=== PATIENT | female | born 1955 | race Caucasian/White ===

== ENCOUNTER 2019-12-06 20:12 | Emergency (ER) | payer MEDICARE ==
[~2019-12-06] VITALS: Ht 160 cm; Wt 76.2 kg
--- OUTSIDE RECORDS SUMMARY | 2019-12-06 20:16 | XMS REPORT | Clinical Summary ---
Author Author [facility] Address Unknown Phone Unavailable Care Team Providers Care City Engineer Name Role Phone Elvi Nagel MD PCP Allergies Comments Active Allergy Reactions Severity Noted Date Codeine Rash Low 11/03/2018 Sulfa (Sulfonamide Anaphylaxis High 11/03/2018 Antibiotics) Medications End Date Status Medication Sig Dispensed Refills Start Date Active lisinopril Take 10 mg by 0 (PRINIVIL,ZESTRIL) 10 mg mouth daily. tablet Active clonIDINE HCl (CATAPRES) Take 0.2 mg 0 0.2 MG tablet by mouth 2 (two) times a day. Active carisoprodol (SOMA) 350 TK 1 T PO TID 1 10/26/ 201 MG tablet 9 Active Problems Problem Noted Date Closed fracture of right wrist 12/19/2018 Encounters Care Team Description Date Type Specialty Tereso Solis MD Closed fracture of right wrist with rout ine healing, subsequent encounter (Primary Dx) 12/19/2018 [facility] Visit [facility] Clarence Shah MA Closed fracture of right wrist with rout ine healing, subsequent encounter (Primary Dx) 12/16/2018 Orders Only [facility] after 12/05/2018 Family History Medical History Relation Name Comments Cancer Father Hypertension Mother Relation Name Status Comments Father Mother Social History Date Tobacco Use Types Packs/Day Years Used Current Every Day Smoker Smokeless Tobacco: Never Used Drinks/Week oz/Week Comments Alcohol Use No Alcohol Habits Answer Date Recorded How often do you have a drink containing alcohol? Never 11/03/2018 How many drinks containing alcohol do you have on No t asked a typical day when you are drinking? How often do you have six or more drinks on one Not asked occasion? Sex Assigned at Date Recorded Not on file Industry Job Start Date Occupation Not on file Not on file Not on file Travel End Travel History Travel Start No recent travel history available. Last Filed Vital Signs Not on file Plan of Treatment Health Maintenance Due Date Last Done Comments CERVICAL CANCER SCREENING 1977 BREAST CANCER SCREENING 2006 COLONOSCOPY SCREENING 2006 SHINGLES VACCINES (#1) 2006 INFLUENZA VACCINE 03/02/2020 Procedures Comments Procedure Name Priority Date/Time Associated Diag nosis XR WRIST 3+ VW RIGHT Routine 12/19/2018 Closed fr acture of right 9:58 AM CDT wrist with routine healing, subsequent encounter after 12/05/2018 Results * XR Wrist 3+ Vw Right (12/19/2018 9:58 AM CDT) Specimen Narrative Performed At [facility] Xrays: The x-rays were ordered and pers onally reviewed by me. 3 views of the right wrist Reason for exam: Right wrist fracture Impression: Right distal radius fractur e healed ulnar styloid fracture Performing Organization Address City/State/Zipcomi Ph one Number [facility] [address] [place] [address] after 12/05/2018 Insurance Type Payer Benefit Subscriber ID Effective Phone Address Plan / Dates Group HMO HUMANA MEDICARE HUMANA HMO xxxxxxxxx [id number] GOLD PLUS resent MEDICARE [id number] Advance Directives For more information, please contact: [phone] Patient Crewman Main Battle Tank Explanation Type Date Recorded Advance Directives, Living Will and Medical Power of Pool Player
--- OUTSIDE RECORDS SUMMARY | 2019-12-06 20:17 | XMS REPORT ---
Author Author NELY Nagel Organization [employer] Address Unknown Phone Unavailable Care Team Providers Care Press Operator Assistant Name Role Phone Elvi Nagel CP Unavailable Allergies No Known Allergies Problems Problem Type Condition Code Onset Dates Condition Statu s Problem Crohn disease K50.90 Active Problem Insomnia G47.00 Active Problem Cervical disc disease with myelopathy M50.00 Active Problem Vertigo R42 Active Problem HTN (hypertension), benign I10 A ctive Problem Cervicalgia M54.2 Active Problem GERD without esophagitis K21.9 Act maya Problem Thyroid nodule E04.1 Active Problem Ataxia R27.0 Active Problem Other chronic pain G89.29 Active Assessment Ataxia R27.0 Active Problem Anxiety F41.9 Active Problem IBS (irritable bowel syndrome) K58.9 Active Medications Medication Code System Code Instructions Start Date End Date Status Dosage Soma [facility] 86770160059 350 Active TAKE ONE TAB LET BY MOUTH THREE TIMES A DAY Meclizine HCl [facility] 48118190293 25 MG Orally twice a day (bid) Jan Active 1 tablet as needed Results No Known Results Summary Purpose eClinicalWorks Submission
--- OUTSIDE RECORDS SUMMARY | 2019-12-06 20:17 | XMS REPORT ---
Author Author NELY Nagel Organization [employer] Address Unknown Phone Unavailable Care Team Providers Care Oncology Social Work Name Role Phone Elvi Nagel CP Unavailable Allergies No Known Allergies Problems Problem Type Condition Code Onset Dates Condition Statu s Problem Crohn disease K50.90 Active Problem Cervical disc disease with myelopathy M50.00 Active Problem Insomnia G47.00 Active Problem HTN (hypertension), benign I10 A ctive Problem Vertigo R42 Active Problem Ataxia R27.0 Active Problem GERD without esophagitis K21.9 Act maya Problem Thyroid nodule E04.1 Active Problem Other chronic pain G89.29 Active Problem Cervicalgia M54.2 Active Assessment Vertigo R42 Active Assessment Anxiety F41.9 Active Problem Anxiety F41.9 Active Problem IBS (irritable bowel syndrome) K58.9 Active Medications Medication Code System Code Instructions Start Date End Date Status Dosage Klonopin [facility] [address]-24 2 MG Orally Twice a day November 10, 2016 Active 1 tablet Meclizine HCl [facility] [address]-89 25 MG Orally twice a day (bid) J 2016 Active 1 tablet as needed Results No Known Results Summary Purpose [employer]ClinicalWorks Submission
--- OUTSIDE RECORDS SUMMARY | 2019-12-06 20:17 | XMS REPORT ---
Author Author NELY Waller Organization [employer] Address Unknown Phone Unavailable Care Team Providers Care Afterschool Name Role Phone Eamon Waller CP Unavailable Allergies, Adverse Reactions, Alerts Substance Reaction Event Type penicillin Info Not Available Drug Allergy sulfa Info Not Available Drug Allergy Codeine Phosphate Info Not Available Drug Allergy Cipro Info Not Available Drug Allergy eggs Info Not Available Non Drug Allergy Problems Problem Type Condition Code Onset Dates [...] Problem Other chronic pain G89.29 Active Assessment IBS (irritable bowel syndrome) K58.9 Active Assessment Current moderate episode of major depressive disorder without prior episode F32.1 Active Assessment HTN (hypertension), benign I10 A ctive Assessment Ataxia R27.0 Active Problem Anxiety F41.9 Active Assessment Anxiety F41.9 Active Problem IBS (irritable bowel syndrome) K58.9 Active Medications Medication Code System Code Instructions Start Date End Date Status Dosage Soma [facility] 14952489391 350 Active TAKE ONE TAB LET BY MOUTH THREE TIMES A DAY Clonidine HCl [facility] 56756542082 0.3 MG Orally th ree times a day (tid) as needed (prn) Active 1 tablet Meclizine HCl [facility] 73007851048 25 MG Orally twice a day (bid) Jan Active 1 tablet as needed Dicyclomine HCl [facility] 87133128395 20 mg Orally Four times a day Active 1 tablet Soma [place] 25199108626 350 MG Orally Four times a day Apr 01, 2017 December 16, 2017 Active 1 tablet Zoloft ND 21645591119 50 mg Orally Once a day November 16, 2017 Active 1 tablet Lisinopril [facility] 71572365403 40 mg Orally twice a day (bid) Active 1 tablet [place]unkie [facility] 95459562202 10-325 MG Orally four times a day (qid ) Jul 15, 2016 Active 1 tablet as needed Klonopin [facility] 18171265686 2 MG Orally Twice a day November 10, 2016 Active 1 tablet Vital Signs Date/Time: November 16, 2017 BMI 28.95 Index Weight 165 lbs Height 63.3 in Temperature 98.1 F Cardiac Monitoring Heart Rate 81 /min Blood Pressure Diastolic 91 mm Hg Blood Pressure Systolic 178 mm Hg Results No Known Results Summary Purpose eClinicalWorks Submission
--- OUTSIDE RECORDS SUMMARY | 2019-12-06 20:17 | XMS REPORT ---
Author Author NELY Nagel Organization [employer] Address Unknown Phone Unavailable Care Team Providers Care Reinforcing Steel Erector Name Role Phone Elvi Nagel CP Unavailable Allergies No Known Allergies Problems Problem Type Condition Code Onset Dates Condition Statu s Problem Crohn disease K50.90 Active Problem Insomnia G47.00 Active Problem Cervical disc disease with myelopathy M50.00 Active Problem Ataxia R27.0 Active Problem Cervicalgia M54.2 Active Problem HTN (hypertension), benign I10 A ctive Problem GERD without esophagitis K21.9 Act maya Problem Thyroid nodule E04.1 Active Problem Other chronic pain G89.29 Active Problem Vertigo R42 Active Assessment HTN (hypertension), benign I10 A ctive Problem Anxiety F41.9 Active Problem IBS (irritable bowel syndrome) K58.9 Active Medications Medication Code System Code Instructions Start Date End Date Status Dosage Lisinopril [facility] 91179636690 40 mg Orally twice a day (bid) Active 1 tablet Results No Known Results Summary Purpose [employer]ClinicalWorks Submission
--- OUTSIDE RECORDS SUMMARY | 2019-12-06 20:17 | XMS REPORT ---
Author Author NELY Nagel Organization [employer] Address Unknown Phone Unavailable Care Team Providers Care Field Scout Name Role Phone Elvi Nagel CP Unavailable Allergies No Known Allergies Problems Problem Type Condition Code Onset Dates Condition Statu s Problem Crohn disease K50.90 Active Problem Insomnia G47.00 Active Problem Cervical disc disease with myelopathy M50.00 Active Problem Anxiety F41.9 Active Problem IBS (irritable bowel syndrome) K58.9 Active Problem Vertigo R42 Active Problem HTN (hypertension), benign I10 A ctive Problem Cervicalgia M54.2 Active Problem GERD without esophagitis K21.9 Act maya Problem Thyroid nodule E04.1 Active Problem Ataxia R27.0 Active Problem Other chronic pain G89.29 Active Medications Medication Code System Code Instructions Start Date End Date Status Dosage Zithromax Z-Temo [facility] 39265042559 250 MG Orally Once a day Jul 032016Aug 03, 2017 Active 2 tablets on the first day, then 1 tablet daily for 4 days Results No Known Results Summary Purpose eClinicalWorks Submission
--- OUTSIDE RECORDS SUMMARY | 2019-12-06 20:17 | XMS REPORT ---
Author Author NELY Nagel Organization [employer] Address Unknown Phone Unavailable Care Team Providers Care Typewriter Aligner Name Role Phone Elvi Nagel CP Unavailable [...] Instructions Start Date End Date Status Dosage Promethazine-DM [facility] [address]-01 15-6.25 MG/5ML Orally ev roque 6 hrs Jun 16, 2017 Jun 30, 2017 Active 5 ml as needed Keflex [facility] 54770683558 500 mg Orally twice a day (bid) Jun 16, 2017 Jun 23, 2017 Active 1 capsule Results No Known Results Summary Purpose [employer]Works Submission
--- OUTSIDE RECORDS SUMMARY | 2019-12-06 20:17 | XMS REPORT ---
Author Author NELY Nagel Organization [employer] Address Unknown Phone Unavailable Care Team Providers Care Adjunct Faculty Instructor Name Role Phone Elvi Nagel CP Unavailable [...] Instructions Start Date End Date Status Dosage Levaquin [facility] 02320027899 500 MG Orally Once a day Jun 11, 2017 Jun 18, 2017 Active 1 tablet Results No Known Results Summary Purpose [employer]ClinicalWorks Submission
--- OUTSIDE RECORDS SUMMARY | 2019-12-06 20:17 | XMS REPORT ---
Author Author NELY Nagel Organization [employer] Address Unknown Phone Unavailable Care Team Providers Care Interior Design Assistant Name Role Phone Elvi Nagel CP Unavailable Allergies No Known Allergies Problems Problem Type Condition Code Onset Dates Condition Statu s Problem Crohn disease K50.90 Active Problem Insomnia G47.00 Active Problem Cervical disc disease with myelopathy M50.00 Active Problem Anxiety F41.9 Active Problem IBS (irritable bowel syndrome) K58.9 Active Problem Ataxia R27.0 Active Problem Cervicalgia M54.2 Active Problem HTN (hypertension), benign I10 A ctive Problem GERD without esophagitis K21.9 Act maya Problem Thyroid nodule E04.1 Active Problem Other chronic pain G89.29 Active Problem Vertigo R42 Active Medications No Known Medications Results No Known Results Summary Purpose [employer]ClinicalWorks Submission
--- OUTSIDE RECORDS SUMMARY | 2019-12-06 20:17 | XMS REPORT ---
Author Author NELY Nagel Organization [employer] Address Unknown Phone Unavailable Care Team Providers Care Perinatal Director Name Role Phone Elvi Nagel CP Unavailable [...] Problem Other chronic pain G89.29 Active Medications No Known Medications Results No Known Results Summary Purpose [employer]ClinicalWorks Submission
--- OUTSIDE RECORDS SUMMARY | 2019-12-06 20:17 | XMS REPORT ---
Author Author NELY Nagel Organization [employer] Address Unknown Phone Unavailable Care Team Providers Care Joiner Apprentice Name Role Phone Elvi Nagel CP Unavailable [...]
--- OUTSIDE RECORDS SUMMARY | 2019-12-06 20:17 | XMS REPORT ---
Author Author NELY Nagel Organization [employer] Address Unknown Phone Unavailable Care Team Providers Care Aquarium Tank Attendant Name Role Phone Elvi Nagel CP Unavailable [...]
--- OUTSIDE RECORDS SUMMARY | 2019-12-06 20:17 | XMS REPORT ---
Author Author NELY Nagel Organization [employer] Address Unknown Phone Unavailable Care Team Providers Care Mortuary Beautician Name Role Phone Elvi Nagel CP Unavailable [...] G89.29 Active Problem Cervicalgia M54.2 Active Assessment Cervicalgia M54.2 Active Problem Anxiety F41.9 Active Problem IBS (irritable bowel syndrome) K58.9 Active Medications Medication Code System Code Instructions Start Date End Date Status Dosage Soma [facility] 81658039721 350 Orally Four times a day Active 1 tablet Klonopin [facility] [address]-86 2 MG Orally Twice a day November 10, 2016 Active 1 tablet Results No Known Results Summary Purpose [employer]ClinicalWorks Submission
--- OUTSIDE RECORDS SUMMARY | 2019-12-06 20:17 | XMS REPORT ---
Author Author NELY Waller Organization [employer] Address Unknown Phone Unavailable Care Team Providers Care Gas Reverser Name Role Phone Eamon Waller CP Unavailable [...] Problem Other chronic pain G89.29 Active Assessment Vertigo R42 Active Assessment Cervical disc disease with myelopathy M50.00 Active Assessment HTN (hypertension), benign I10 A ctive Assessment IBS (irritable bowel syndrome) K58.9 Active Problem Anxiety F41.9 Active Assessment Anxiety F41.9 Active Problem IBS (irritable bowel syndrome) K58.9 Active Medications Medication Code System Code Instructions Start Date End Date Status Dosage Soma [facility] 29621016250 350 MG Orally Four times a day Apr 01, 2017 Aug 30, 2017 Active 1 tablet Dicyclomine HCl [facility] 32942928594 20 Active TAKE ONE TABLET BY MOUTH FOUR TIMES A DAY Lisinopril [facility] 06629324194 40 mg Orally twice a day (bid) Active 1 tablet Clonidine HCl [facility] 05586823979 0.3 MG Orally Twice a day Active 1 tablet Clonidine HCl [facility] 38073230118 0.3 Active TAKE O NE TABLET BY MOUTH TWICE A DAY Klonopin [facility] 13524964979 2 MG Orally Twice a day November 10, 2016 Active 1 tablet Dicyclomine HCl [facility] 56076798646 20 Active TAKE ONE TABLET BY MOUTH FOUR TIMES A DAY Meclizine HCl [facility] 76726843777 25 MG Orally twice a day (bid) Jan Active 1 tablet as needed [place] [facility] 55271027286 10-325 MG Orally four times a day (qid ) Jul 15, 2016 Active 1 tablet as needed Dicyclomine HCl [facility] 95297591529 20 mg Orally Four times a day Active 1 tablet Clonidine HCl [facility] 85553449779 0.3 Active TAKE O NE TABLET BY MOUTH TWICE A DAY Dicyclomine HCl [facility] 12208471493 20 Active TAKE ONE TABLET BY MOUTH FOUR TIMES A DAY Vital Signs Date/Time: Jul 01, 2017 BMI 28.30 Index Weight 161.3 lbs Height 63.3 in Temperature 98.2 F Cardiac Monitoring Heart Rate 92 /min Blood Pressure Diastolic 85 mm Hg Blood Pressure Systolic 128 mm Hg Results No Known Results Summary Purpose eClinicalWorks Submission
--- OUTSIDE RECORDS SUMMARY | 2019-12-06 20:17 | XMS REPORT ---
Author Author NELY Nagel Organization [employer] Address Unknown Phone Unavailable Care Team Providers Care Plaster Die Maker Name Role Phone Elvi Nagel Unavailable Allergies, Adverse Reactions, Alerts Substance Reaction Event Type Influenza Vac Typ A&B Surf Ant Info Not Available Drug Marshall rgy Codeine Phosphate Info Not Available Drug Allergy [...] G89.29 Active Problem Vertigo R42 Active Assessment Anxiety F41.9 Active Assessment IBS (irritable bowel syndrome) K58.9 Active Assessment Cervical disc disease with myelopathy M50.00 Active Assessment Cervicalgia M54.2 Active Assessment HTN (hypertension), benign I10 A ctive Problem Anxiety F41.9 Active Assessment Other chronic pain G89.29 Active Problem IBS (irritable bowel syndrome) K58.9 Active Medications Medication Code System Code Instructions Start Date End Date Status Dosage Clonidine HCl [facility] 21451961129 0.3 MG Orally Twice a day as needed Active 1 tablet [place] [facility] 25172747779 10-325 MG Orally four times a day (qid ) Jul 15, 2016 Active 1 tablet as needed Meclizine HCl [facility] 15672314802 25 MG Orally twice a day (bid) Jan Active 1 tablet Dicyclomine HCl [facility] 02628293978 20 mg Orally Four times a day May 28, 2019 Active 1 tablet Soma [facility] 94302435662 350 Orally three times a day (tid) Active 1 tablet Lisinopril [facility] 42961886026 40 mg Orally twice a day (bid) Active 1 tablet Klonopin ND 64553208240 2 MG Orally Twice a day November 10, 2016 Active 1 tablet Vital Signs Date/Time: Aug 31, 2018 BMI 31.23 Index Weight 178.0 lbs Height 63.3 in Temperature 97.1 F Cardiac Monitoring Heart Rate 68 /min Blood Pressure Diastolic 91 mm Hg Blood Pressure Systolic 147 mm Hg Results No Known Results Summary Purpose eClinicalWorks Submission
--- OUTSIDE RECORDS SUMMARY | 2019-12-06 20:17 | XMS REPORT ---
Author Author NELY Nagel Organization [employer] Address Unknown Phone Unavailable Care Team Providers Care Parts Counterperson Name Role Phone Elvi Nagel CP Unavailable [...] G89.29 Active Problem Cervicalgia M54.2 Active Assessment IBS (irritable bowel syndrome) K58.9 Active Problem Anxiety F41.9 Active Problem IBS (irritable bowel syndrome) K58.9 Active Medications Medication Code System Code Instructions Start Date End Date Status Dosage Dicyclomine HCl [facility] [address]-25 20 mg Orally Four times a day January 08, 2018 Active 1 tablet Soma [facility] [address]-63 350 MG Orally THREE TIMES A DAY A ug 2016May 13, 2017 Active 1 tablet Meclizine HCl [facility] [address]-93 25 MG Orally twice a day (bid) J darshan 2016 Active 1 tablet as needed Results No Known Results Summary Purpose eClinicalWorks Submission
--- OUTSIDE RECORDS SUMMARY | 2019-12-06 20:17 | XMS REPORT ---
Author Author NELY Nagel Organization [employer] Address Unknown Phone Unavailable Care Team Providers Care Laborer Rags Name Role Phone Elvi Nagel CP Unavailable [...] Problem Other chronic pain G89.29 Active Assessment HTN (hypertension), benign I10 A ctive Problem Anxiety F41.9 Active Problem IBS (irritable bowel syndrome) K58.9 Active Medications Medication Code System Code Instructions Start Date End Date Status Dosage Clonidine HCl [facility] 18998486500 0.3 MG Orally th ree times a day (tid) as needed (prn) Active 1 tablet Results No Known Results Summary Purpose eClinicalWorks Submission
--- OUTSIDE RECORDS SUMMARY | 2019-12-06 20:17 | XMS REPORT ---
Author Author NELY Nagel Organization [employer] Address Unknown Phone Unavailable Care Team Providers Care Rn Resource Nurse Name Role Phone Elvi Nagel Unavailable Allergies No Known Allergies Problems Problem [...] G89.29 Active Problem Vertigo R42 Active Assessment Cervical disc disease with myelopathy M50.00 Active Problem Anxiety F41.9 Active Problem IBS (irritable bowel syndrome) K58.9 Active Medications Medication Code System Code Instructions Start Date End Date Status Dosage Soma [facility] 41422081235 350 Orally three times a day (tid) A pril 2018 Active 1 tablet Results No Known Results Summary Purpose eClinicalWorks Submission
--- OUTSIDE RECORDS SUMMARY | 2019-12-06 20:17 | XMS REPORT ---
Author Author NELY Nagel Organization [employer] Address Unknown Phone Unavailable Care Team Providers Care Rod Pointer Name Role Phone Elvi Nagel CP Unavailable Allergies No Known Allergies Problems Problem Type Condition Code Onset Dates Condition Statu s Problem Anxiety F41.9 Active Problem Thyroid nodule E04.1 Active Problem Cervical disc disease with myelopathy M50.00 Active Problem GERD without esophagitis K21.9 Act maya Problem IBS (irritable bowel syndrome) K58.9 Active Problem HTN (hypertension) I10 Active Problem Insomnia G47.00 Active Problem Crohn disease K50.90 Active Medications Medication Code System Code Instructions Start Date End Date Status Dosage Carisoprodol [facility] [address]-90 350 MG Orally Four times a day November 10, 2016 December 10, 2016 Active 1 tablet as needed Klonopin [facility] [address]-54 2 MG Orally Twice a day November 10, 2016 Active 1 tablet Results No Known Results Summary Purpose eClinicalWorks Submission
--- OUTSIDE RECORDS SUMMARY | 2019-12-06 20:17 | XMS REPORT ---
Author Author NELY Nagel Organization [employer] Address Unknown Phone Unavailable Care Team Providers Care Financial Services Counselor Name Role Phone Elvi Nagel CP Unavailable [...] G89.29 Active Problem Cervicalgia M54.2 Active Assessment HTN (hypertension), benign I10 A ctive Problem Anxiety F41.9 Active Problem IBS (irritable bowel syndrome) K58.9 Active Medications Medication Code System Code Instructions Start Date End Date Status Dosage Clonidine HCl [facility] [address]-83 0.3 MG Orally Twice a day Active 1 tablet Lisinopril [facility] [address]-79 40 MG Orally twice a day (bid) Active 1 tablet Results No Known Results Summary Purpose eClinicalWorks Submission
--- OUTSIDE RECORDS SUMMARY | 2019-12-06 20:17 | XMS REPORT ---
Author Author NELY Nagel Organization [employer] Address Unknown Phone Unavailable Care Team Providers Care Reconditioner Name Role Phone Elvi Nagel CP Unavailable [...] G89.29 Active Problem Vertigo R42 Active Medications Medication Code System Code Instructions Start Date End Date Status Dosage Promethazine-DM [facility] 64130007195 6.25-15 MG/5ML Orally every 6 hrs Jul 04, 2018 Jul 14, 2018 Active 5 ml as needed Results No Known Results Summary Purpose eClinicalWorks Submission
--- OUTSIDE RECORDS SUMMARY | 2019-12-06 20:17 | XMS REPORT ---
Author Author NELY Nagel Organization [employer] Address Unknown Phone Unavailable Care Team Providers Care Bakery Technician Name Role Phone Elvi Nagel CP Unavailable [...] Start Date End Date Status Dosage Klonopin [facility] [address]-32 2 MG Orally Twice a day November 10, 2016 Active 1 tablet Soma [facility] 29604057940 350 Orally Four times a day Active 1 tablet as needed Results No Known Results Summary Purpose eClinicalWorks Submission
--- OUTSIDE RECORDS SUMMARY | 2019-12-06 20:17 | XMS REPORT ---
Author Author NELY Nagel Organization [employer] Address Unknown Phone Unavailable Care Team Providers Care Rooter Operator Name Role Phone Elvi Nagel CP Unavailable [...] Start Date End Date Status Dosage Soma [facility] [id number] Orally Four times a day Apr 01, 2017 Inactive 1 tablet Soma [facility] [address]-64 350 MG Orally THREE TIMES A DAY A 2016May 01, 2017 Active 1 tablet Results No Known Results Summary Purpose [employer] Submission
--- OUTSIDE RECORDS SUMMARY | 2019-12-06 20:17 | XMS REPORT ---
Author Author NELY Nagel Organization [employer] Address Unknown Phone Unavailable Care Team Providers Care Furnishings Conservator Name Role Phone Elvi Nagel CP Unavailable [...]
--- OUTSIDE RECORDS SUMMARY | 2019-12-06 20:17 | XMS REPORT | Continuity of Care Document ---
Author Author Marily Prince [employer] [facility] [employer] Address Unknown Phone Unavailable Care Team Providers Care Statistical Technician Name Role Phone [employer] Unavailable Un available Problems Problem Status Onset Date Classification Date Reported Comments Source Anxiety Active Diagnosis 12/24/2018 2.16.840.1.975408.4.391.11.01470 Thyroid nodule Active Problem 12/24/2018 2.16.840.1.116668.4.391.11.2 2568 Cervical disc disease with myelopathy Active Problem 2.16.840.1.537178.4.391.11.2 2568 GERD without esophagitis Active Problem 12/24/2018 2.16.840.1.327505.4.391.11.2 2568 IBS (irritable bowel syndrome) Active Problem 2.16.840.1.357311.4.391.11.2 2568 HTN (hypertension) Active Problem 02/04/2017 2.16.840.1.037375.4.391.11.2 2568 Insomnia Active Problem 12/24/2018 2.16.840.1.205333.4.391.11.73693 Crohn disease Active Problem 12/24/2018 2.16.840.1.789686.4.391.11.24488 Vertigo Active Problem 12/24/2018 2.16.840.1.190446.4.391.11.47415 HTN (hypertension), benign Act maya Problem 2.16.840.1.113471.4.391.11.2 2568 Cervicalgia Active Problem 12/24/2018 2.16.840.1.257814.4.391.11.37797 Ataxia Active Problem 12/24/2018 2.16.840.1.713781.4.391.11.19312 Other chronic pain Active Problem 12/24/2018 2.16.840.1.305739.4.391.11.2 2568 Current moderate episode of major depres sive disorder without prior episode Active Diagnosis 12/03/2017 2.16.840.1.590042.4.391.11.30665 Colitis Active Diagnosis 04/09/2018 2.16.840.1.433039.4.391.11.26660 Irritable bowel syndrome Active Diagnosis 04/01/2016 2.16.840.1.342355.4.391.11.2 2568 HTN (hypertension) Active Problem 01/11/2016 2.16.840.1.195264.4.391.11.2 2568 Closed fracture of right wrist, initial encounter Active Diagnosis 11/19/2018 2.16.840.1.294050.4.391.11.33779 Diplopia Active Diagnosis 01/06/2016 2.16.840.1.785409.4.391.11.42134 Osteoarthritis of right knee A ctive Diagnosis 0 01/06/2016 2.16.840.1.099490.4.391.11.2 2568 Dental caries, unspecified Act maya Diagnosis 0 01/06/2016 2.16.840.1.095692.4.391.11.2 2568 Bronchitis Active Diagnosis 10/01/2016 2.16.840.1.479754.4.391.11.30122 Medications Medication Details Route Status Patient Instructions Ordering Provider Order Date Source Dicyclomine HCl 1 tablet Orally Active 20 mg Orally Four times a day Robe 05/28/2019 2.16.840.1.173596.4.391.11.45067 Soma 1 tablet Orally Active 350 Orally three times a day (tid) Robe 11/26/2018 2.16.840.1.242516.4.391.11.50972 Soma 1 tablet as needed Orally Active 350 MG Orally three kadi es a day (tid) Robe 09/27/2018 2.16.840.1.523622.4.391.11.45500 Augmentin 1 tablet Orally Active 875-125 MG Orally every 12 hrs Robe 07/08/2018 2.16.840.1.397358.4.391.11.15182 Promethazine-DM 5 ml as needed Orally Active 6.25-15 MG/5ML Orally every 6 hrs Robe 07/04/2018 2.16.840.1.307341.4.391.11.81071 Dicyclomine HCl 1 tablet Orally Active 20 mg Orally Four times a day Sridhar 01/08/2018 2.16.840.1.932234.4.391.11.98924 Dicyclomine HCl 1 tablet Orally Active 20 mg Orally Four times a day Robe 11/20/2017 2.16.840.1.930696.4.391.11.40193 Zoloft 1 tablet Orally Active 50 mg Orally Once a day Sridhar 11/16/2017 2.16.840.1.561483.4.391.11.51564 Zithromax Z-Temo 2 tablets on the first day, then 1 tablet daily for 4 days Orally Active 250 MG Orally Once a day Robe 07/29/2017 2.16.840.1.447880.4.391.11.68434 Promethazine-DM 5 ml as needed Orally Active 15-6.25 MG/5ML Orally every 6 hrs Robe 06/16/2017 2.16.840.1.087177.4.391.11.39557 Keflex 1 capsule Orally Active 500 mg Orally twice a d ay (bid) Robe 06/16/2017 2.16.840.1.940610.4.391.11.75280 Levaquin 1 tablet Orally Active 500 MG Orally Once a da y Robe 06/11/2017 2.16.840.1.692772.4.391.11.42988 Dicyclomine HCl 1 tablet Orally Active 20 mg Orally Four times a day Robe 04/05/2017 2.16.840.1.535119.4.391.11.42176 Soma 1 tablet Orally Active 350 MG Orally Four time s a day Sridhar 04/01/2017 2.16.840.1.285921.4.391.11.87550 Soma 1 tablet Orally Active 350 MG Orally Four time s a day Sridhar 04/01/2017 2.16.840.1.387483.4.391.11.72498 Meclizine HCl 1 tablet as need ed Orally Active 25 MG Orally twice a day (bid) Sridhar 02/23/2017 2.16.840.1.977755.4.391.11.66476 Meclizine HCl 1 tablet Orally Active 25 MG Orally twice a da y (bid) Robe 02/23/2017 2.16.840.1.189234.4.391.11.12668 Klonopin 1 tablet Orally Active 2 MG Orally Twice a day Sridhar 11/10/2016 2.16.840.1.268702.4.391.11.12969 Carisoprodol 1 tablet as needed Orally Active 350 MG Orally Four times a day Robe 11/10/2016 2.16.840.1.635878.4.391.11.24428 Klonopin 1 tablet Orally Active 2 MG Orally Twice a day Robe 11/10/2016 2.16.840.1.469774.4.391.11.67630 Promethazine-DM 5 ml as needed Orally Active 6.25-15 MG/5ML Orally every 4- 6 hrs Robe 09/21/2016 2.16.840.1.938306.4.391.11.49002 Protonix 1 tablet Orally Active 40 MG Orally Once a day Sridhar 09/15/2016 2.16.840.1.871496.4.391.11.25530 Ceftin 1 tablet Orally Active 500 MG Orally Twice a d ay Robe 09/15/2016 2.16.840.1.827202.4.391.11.33543 [place] 1 tablet as needed Orally Active 10-325 MG Orally four times a day (qid) Sridhar 07/15/2016 2.16.840.1.090965.4.391.11.10998 [place] 1 tablet as needed Orally Active 10-325 MG Orally four times a day (qid) Robe 07/15/2016 2.16.840.1.886708.4.391.11.60486 Dicyclomine HCl 1 tablet Orally Active 20 mg Orally Four times a day Robe 06/29/2016 2.16.840.1.847793.4.391.11.75622 Dicyclomine HCl 1 tablet Orally Active 20 mg Orally Four times a day Robe 06/29/2016 2.16.840.1.802673.4.391.11.56195 BusPIRone HCl 1 tablet Orally Active 7.5 MG Orally Twice a d ay Robe 06/15/2016 2.16.840.1.975669.4.391.11.05134 Keflex 1 capsule Orally Active 500 MG Orally Twice a d ay Robe 03/03/2016 2.16.840.1.807686.4.391.11.13710 Dicyclomine HCl 1 tablet Orally Active 20 mg Orally Four times a day Robe 02/10/2016 2.16.840.1.572079.4.391.11.38417 Carisoprodol 1 tablet as needed Orally Active 350 MG Orally Four times a day Robe 12/08/2015 2.16.840.1.971087.4.391.11.83011 Keflex 1 capsule Orally Active 500 MG Orally Twice a d ay Robe 10/21/2015 2.16.840.1.142827.4.391.11.48971 Carisoprodol 1 tablet as needed Orally Active 350 MG Orally Four times a day Robe 08/18/2015 2.16.840.1.449394.4.391.11.51373 Clonidine HCl 1 tablet Orally Active 0.3 MG Orally Twice a d ay Sridhar .16840.1.554653.4.391..22821 Lisinopril 1 tablet Orally Active 40 MG Orally twice a da y (bid) Sridhar .16840.1.857907.4.391.11.92962 Soma 1 tablet Orally Active 350 Orally three times a day (tid) Robe .16840.1.554454.4.391.68 Clonidine HCl TAKE ONE TABLET BY MOUTH TWICE A DAY NA Active 0. 3 Sridhar .16840.1.406483.4.391..33067 Clonidine HCl 1 tablet Orally Active 0.3 MG Orally Twice a d ay as needed Robe 2.840.1.436101.4.391..54934 Lisinopril 1 tablet Orally Active 40 mg Orally twice a da y (bid) Robe 2.16840.1.284998.4.391..89856 Soma 1 tablet as needed Orally Active 350 MG Orally Four time s a day Robe 2.840.1.591432.4.391. Dicyclomine HCl 1 tablet Orally Active 20 mg Orally Four times a day Robe 2.840.1.627261.4.391. Klonopin 1 tablet Orally Active 2 MG Orally Twice a day Robe 2.840.1.024623.4.391. Dicyclomine HCl 1 tablet Orally Active 20 MG Orally Four times a day Rboe 2.840.1.355226.4.391. Allergies, Adverse Reactions, Alerts Substance Category Reaction Severity Reaction type Status Date Reported Comments Source penicillin Adverse Reaction Info Not Available Adverse Reaction Active 01/07/2018 2.16840.1.024082.4.391.11.2 2568 sulfa Adverse Reaction Info Not Available Adverse Reaction Active 01/07/2018 2.16840.1.393569.4.391.11.2 2568 Codeine Phosphate Adverse Reac tion Info Not Available Adverse Reaction Active 11/02/2018 2.16840.1.938425.4.391.11.2 2568 Cipro Adverse Reaction Info Not Available Adverse Reaction Active 11/02/2018 2.16.840.1.570493.4.391.11.2 2568 Influenza Vac Typ A&B Surf Ant Adverse Reaction Info Not Available Adverse Reaction Active 11/02/2018 2.16840.1.231012.4.391.11.37202 eggs Adverse Reaction Info Not Available Adverse Reaction Active 11/02/2018 2.16.840.1.456031.4.391.11.2 2568 Immunizations No Data Provided for This Section Results No Data Provided for This Section Pathology Reports No Data Provided for This Section Diagnostic Reports No Data Provided for This Section Consultation Notes No Data Provided for This Section Discharge Summaries No Data Provided for This Section History and Physicals No Data Provided for This Section Vital Signs Vital Sign Value Date Comments Source Weight 178.0 11/02/2018 2.16.840.1.918757.4.391.11.2 2568 Height 63.3 11/02/2018 2.16.840.1.308309.4.391.11.2 2568 Temperature Oral (F) 97.1 F 11/02/2018 2.16.840.1.064236.4.391.11.91082 Heart Rate 69 11/02/2018 2.16.840.1.297549.4.391.11.2 2568 Diastolic (mm Hg) 78 11/02/2018 2.16.840.1.842224.4.391.11.42786 Systolic (mm Hg) 132 11/02/2018 2.16.840.1.300414.4.391.11.23737 Weight 177.0 10/26/2018 2.16.840.1.543712.4.391.11.2 2568 Height 63.3 10/26/2018 2.16.840.1.187419.4.391.11.2 2568 Temperature Oral (F) 96.6 F 10/26/2018 2.16.840.1.875526.4.391.11.63727 Heart Rate 80 10/26/2018 2.16.840.1.771983.4.391.11.2 2568 Diastolic (mm Hg) 105 10/26/2018 2.16.840.1.147270.4.391.11.50357 Systolic (mm Hg) 162 10/26/2018 2.16.840.1.852766.4.391.11.32388 Weight 178.0 08/31/2018 2.16.840.1.600682.4.391.11.2 2568 Height 63.3 08/31/2018 2.16.840.1.954299.4.391.11.2 2568 Temperature Oral (F) 97.1 F 08/31/2018 2.16.840.1.618474.4.391.11.77650 Heart Rate 68 08/31/2018 2.16.840.1.955840.4.391.11.2 2568 Diastolic (mm Hg) 91 08/31/2018 2.16.840.1.035967.4.391.11.56297 Systolic (mm Hg) 147 08/31/2018 2.16.840.1.537354.4.391.11.53664 Weight 168.6 04/08/2018 2.16.840.1.934351.4.391.11.2 2568 Height 63.3 04/08/2018 2.16.840.1.048489.4.391.11.2 2568 Temperature Oral (F) 97.7 F 04/08/2018 2.16.840.1.475903.4.391.11.42126 Heart Rate 95 04/08/2018 2.16.840.1.825740.4.391.11.2 2568 Diastolic (mm Hg) 109 04/08/2018 2.16.840.1.875685.4.391.11.04644 Systolic (mm Hg) 192 04/08/2018 2.16.840.1.341989.4.391.11.78169 Weight 163.0 01/07/2018 2.16.840.1.085351.4.391.11.2 2568 Height 63.3 01/07/2018 2.16.840.1.661020.4.391.11.2 2568 Temperature Oral (F) 97.8 F 01/07/2018 2.16.840.1.013533.4.391.11.86731 Heart Rate 89 01/07/2018 2.16.840.1.260320.4.391.11.2 2568 Diastolic (mm Hg) 73 01/07/2018 2.16.840.1.954809.4.391.11.60495 Systolic (mm Hg) 131 01/07/2018 2.16.840.1.335928.4.391.11.21380 Weight 165 11/16/2017 2.16.840.1.956119.4.391.11.2 2568 Height 63.3 11/16/2017 2.16.840.1.701711.4.391.11.2 2568 Temperature Oral (F) 98.1 F 11/16/2017 2.16.840.1.375509.4.391.11.06736 Heart Rate 81 11/16/2017 2.16.840.1.111529.4.391.11.2 2568 Diastolic (mm Hg) 91 11/16/2017 2.16.840.1.857565.4.391.11.68358 Systolic (mm Hg) 178 11/16/2017 2.16.840.1.384677.4.391.11.90335 Weight 161.3 07/01/2017 2.16.840.1.515211.4.391.11.2 2568 Height 63.3 07/01/2017 2.16.840.1.598076.4.391.11.2 2568 Temperature Oral (F) 98.2 F 07/01/2017 2.16.840.1.792110.4.391.11.23427 Heart Rate 92 07/01/2017 2.16.840.1.573719.4.391.11.2 2568 Diastolic (mm Hg) 85 07/01/2017 2.16.840.1.886060.4.391.11.06295 Systolic (mm Hg) 128 07/01/2017 2.16.840.1.153449.4.391.11.58326 Weight 165.9 06/03/2017 2.16.840.1.018507.4.391.11.2 2568 Height 63.3 06/03/2017 2.16.840.1.720783.4.391.11.2 2568 Temperature Oral (F) 98.1 F 06/03/2017 2.16.840.1.999196.4.391.11.47788 Heart Rate 81 06/03/2017 2.16.840.1.972619.4.391.11.2 2568 Diastolic (mm Hg) 89 06/03/2017 2.16.840.1.306039.4.391.11.40197 Systolic (mm Hg) 143 06/03/2017 2.16.840.1.672034.4.391.11.71002 Weight 164.5 02/23/2017 2.16.840.1.243863.4.391.11.2 2568 Height 63.3 02/23/2017 2.16.840.1.369556.4.391.11.2 2568 Temperature Oral (F) 99.0 F 02/23/2017 2.16.840.1.359080.4.391.11.92041 Heart Rate 73 02/23/2017 2.16.840.1.528344.4.391.11.2 2568 Diastolic (mm Hg) 97 02/23/2017 2.16.840.1.842704.4.391.11.92043 Systolic (mm Hg) 134 02/23/2017 2.16.840.1.762894.4.391.11.53195 Weight 159.1 09/15/2016 2.16.840.1.130266.4.391.11.2 2568 Height 63.3 09/15/2016 2.16.840.1.064816.4.391.11.2 2568 Temperature Oral (F) 98.2 F 09/15/2016 2.16.840.1.742320.4.391.11.85899 Heart Rate 81 09/15/2016 2.16.840.1.682848.4.391.11.2 2568 Diastolic (mm Hg) 83 09/15/2016 2.16.840.1.744392.4.391.11.91278 Systolic (mm Hg) 119 09/15/2016 2.16.840.1.812195.4.391.11.45171 Weight 159 06/15/2016 2.16.840.1.670313.4.391.11.2 2568 Height 63.3 06/15/2016 2.16.840.1.585900.4.391.11.2 2568 Temperature Oral (F) 98 F 06/15/2016 2.16.840.1.112606.4.391.11.25531 Heart Rate 66 06/15/2016 2.16.840.1.670985.4.391.11.2 2568 Diastolic (mm Hg) 83 06/15/2016 2.16.840.1.431544.4.391.11.06376 Systolic (mm Hg) 128 06/15/2016 2.16.840.1.801231.4.391.11.70306 Weight 161 11/19/2015 2.16.840.1.742047.4.391.11.2 2568 Height 63.3 11/19/2015 2.16.840.1.691383.4.391.11.2 2568 Temperature Oral (F) 97.8 F 11/19/2015 2.16.840.1.060960.4.391.11.29732 Heart Rate 75 11/19/2015 2.16.840.1.141641.4.391.11.2 2568 Diastolic (mm Hg) 74 11/19/2015 2.16.840.1.284003.4.391.11.57453 Systolic (mm Hg) 111 11/19/2015 2.16.840.1.222422.4.391.11.03210 Encounters Location Location Details Encounter Type Encounter Number Reason For Visit Attending Provider ADM Date DC Date Status Source [facility] Unknown [id number] 04/29/20 15 04/29/2015 2.16.840.1.206168.4.391.11.04636 [facility] Unknown [id number] 04/29/20 15 04/29/2015 2.16.840.1.329482.4.391.11.75446 [facility] Unknown [id number] 04/29/20 15 04/29/2015 2.16.840.1.629892.4.391.11.32846 [facility] Unknown [id number] 04/29/20 15 04/29/2015 2.16.840.1.139489.4.391.11.74670 [facility] Unknown [id number] 04/29/20 15 04/29/2015 2.16.840.1.104157.4.391.11.88568 [facility] Unknown [id number] 04/29/20 15 04/29/2015 2.16.840.1.333990.4.391.11.98594 [facility] Unknown [id number] 04/29/20 15 04/29/2015 2.16.840.1.525990.4.391.11.99962 [facility] Unknown [id number] 04/29/20 15 04/29/2015 2.16.840.1.519286.4.391.11.54547 [facility] Unknown [id number] 04/29/20 15 04/29/2015 2.16.840.1.690698.4.391.11.82029 [facility] Unknown [id number] 04/29/20 15 04/29/2015 2.16.840.1.549747.4.391.11.79481 [facility] Unknown [id number] 04/29/20 15 04/29/2015 2.16.840.1.902422.4.391.11.58548 [facility] Unknown [id number] 04/29/20 15 04/29/2015 2.16.840.1.100955.4.391.11.69876 [facility] Unknown [id number] 04/29/20 15 04/29/2015 2.16.840.1.242561.4.391.11.22993 [facility] Unknown [id number] 04/29/20 15 04/29/2015 2.16.840.1.135900.4.391.11.57519 [facility] Unknown [id number] 04/29/20 15 04/29/2015 2.16.840.1.050440.4.391.11.95862 [facility] Unknown [id number] 04/29/20 15 04/29/2015 2.16.840.1.673440.4.391.11.72286 [facility] Unknown [id number] 04/29/20 15 04/29/2015 2.16.840.1.880754.4.391.11.41585 [facility] Unknown [id number] 04/29/20 15 04/29/2015 2.16.840.1.653047.4.391.11.76725 [facility] Unknown [id number] 04/29/20 15 04/29/2015 2.16.840.1.201961.4.391.11.76589 [facility] Unknown [id number] 04/29/20 15 04/29/2015 2.16.840.1.183510.4.391.11.86099 [facility] Unknown [id number] 04/29/20 15 04/29/2015 2.16.840.1.161830.4.391.11.84631 [facility] Unknown [id number] 04/29/20 15 04/29/2015 2.16.840.1.870151.4.391.11.64439 [facility] Unknown [id number] 04/29/20 15 04/29/2015 2.16.840.1.854638.4.391.11.67675 [facility] Unknown [id number] 04/29/20 15 04/29/2015 2.16.840.1.258387.4.391.11.81225 [facility] Unknown [id number] 04/29/20 15 04/29/2015 2.16.840.1.964274.4.391.11.05169 [facility] Unknown [id number] 04/29/20 15 04/29/2015 2.16.840.1.804560.4.391.11.73180 [facility] Unknown [id number] 04/29/20 15 04/29/2015 2.16.840.1.956214.4.391.11.04139 [facility] Unknown [id number] 04/29/20 15 04/29/2015 2.16.840.1.349483.4.391.11.08039 [facility] Unknown [id number] 04/29/20 15 04/29/2015 2.16.840.1.936474.4.391.11.11132 [facility] Unknown [id number] 04/29/20 15 04/29/2015 2.16.840.1.266419.4.391.11.81388 [facility] Unknown [id number] 04/29/20 15 04/29/2015 2.16.840.1.172473.4.391.11.23800 [facility] Unknown [id number] 04/29/20 15 04/29/2015 2.16.840.1.990129.4.391.11.88631 [facility] Unknown [id number] 04/29/20 15 04/29/2015 2.16.840.1.626573.4.391.11.69769 [facility] Unknown [id number] 04/29/20 15 04/29/2015 2.16.840.1.927050.4.391.11.29850 [facility] Unknown [id number] 04/29/20 15 04/29/2015 2.16.840.1.897878.4.391.11.56534 [facility] Unknown [id number] 04/29/20 15 04/29/2015 2.16.840.1.881678.4.391.11.03350 [facility] Unknown [id number] 04/29/20 15 04/29/2015 2.16.840.1.951220.4.391.11.71484 [facility] Unknown [id number] 04/29/20 15 04/29/2015 2.16.840.1.520691.4.391.11.27459 [facility] Unknown [id number] 05/23/20 15 05/23/2015 2.16.840.1.107943.4.391.11.09324 [facility] Unknown [id number] 05/23/20 15 05/23/2015 2.16.840.1.458974.4.391.11.34412 [facility] Unknown [id number] 05/23/20 15 05/23/2015 2.16.840.1.264876.4.391.11.92808 [facility] Unknown [id number] 05/23/20 15 05/23/2015 2.16.840.1.602775.4.391.11.11814 [facility] Unknown [id number] 05/23/20 15 05/23/2015 2.16.840.1.850417.4.391.11.68369 [facility] Unknown [id number] 05/23/20 15 05/23/2015 2.16.840.1.102825.4.391.11.07868 [facility] Unknown [id number] 05/23/20 15 05/23/2015 2.16.840.1.912872.4.391.11.32313 [facility] Unknown [id number] 05/23/20 15 05/23/2015 2.16.840.1.359846.4.391.11.46860 [facility] Unknown [id number] 05/23/20 15 05/23/2015 2.16.840.1.040035.4.391.11.73444 [facility] Unknown [id number] 05/23/20 15 05/23/2015 2.16.840.1.761857.4.391.11.67827 [facility] Unknown [id number] 05/23/20 15 05/23/2015 2.16.840.1.064919.4.391.11.30831 [facility] Unknown [id number] 05/23/20 15 05/23/2015 2.16.840.1.925770.4.391.11.42243 [facility] Unknown [id number] 05/23/20 15 05/23/2015 2.16.840.1.268149.4.391.11.97913 [facility] Unknown [id number] 05/23/20 15 05/23/2015 2.16.840.1.381933.4.391.11.98978 [facility] Unknown [id number] 05/23/20 15 05/23/2015 2.16.840.1.179402.4.391.11.80693 [facility] Unknown [id number] 05/23/20 15 05/23/2015 2.16.840.1.782515.4.391.11.78828 [facility] Unknown [id number] 05/23/20 15 05/23/2015 2.16.840.1.638910.4.391.11.49297 [facility] Unknown [id number] 05/23/20 15 05/23/2015 2.16.840.1.265949.4.391.11.89905 [facility] Unknown [id number] 05/23/20 15 05/23/2015 2.16.840.1.683878.4.391.11.08174 [facility] Unknown [id number] 05/24/20 15 05/24/2015 2.16.840.1.649628.4.391.11.05825 [facility] Unknown [id number] 05/24/20 15 05/24/2015 2.16.840.1.082335.4.391.11.67040 [facility] Unknown [id number] 05/24/20 15 05/24/2015 2.16.840.1.758110.4.391.11.69828 [facility] Unknown [id number] 05/24/20 15 05/24/2015 2.16.840.1.009198.4.391.11.75934 [facility] Unknown [id number] 05/24/20 15 05/24/2015 2.16.840.1.961603.4.391.11.59282 [facility] Unknown [id number] 05/24/20 15 05/24/2015 2.16.840.1.963720.4.391.11.79224 [facility] Unknown [id number] 05/24/20 15 05/24/2015 2.16.840.1.732533.4.391.11.77874 [facility] Unknown [id number] 05/24/20 15 05/24/2015 2.16.840.1.208640.4.391.11.60797 [facility] Unknown [id number] 05/24/20 15 05/24/2015 2.16.840.1.729518.4.391.11.32580 [facility] Unknown [id number] 05/24/20 15 05/24/2015 2.16.840.1.255948.4.391.11.31391 [facility] Unknown [id number] 05/24/20 15 05/24/2015 2.16.840.1.136271.4.391.11.99377 [facility] Unknown [id number] 05/24/20 15 05/24/2015 2.16.840.1.750978.4.391.11.77327 [facility] Unknown [id number] 05/24/20 15 05/24/2015 2.16.840.1.222936.4.391.11.88481 [facility] Unknown [id number] 05/24/20 15 05/24/2015 2.16.840.1.042040.4.391.11.79245 [facility] Unknown [id number] 05/24/20 15 05/24/2015 2.16.840.1.649045.4.391.11.44292 [facility] Unknown [id number] 05/24/20 15 05/24/2015 2.16.840.1.649708.4.391.11.42082 [facility] Unknown [id number] 05/24/20 15 05/24/2015 2.16.840.1.131987.4.391.11.92488 [facility] Unknown [id number] 05/24/20 15 05/24/2015 2.16.840.1.385344.4.391.11.46468 [facility] Unknown [id number] 05/24/20 15 05/24/2015 2.16.840.1.783127.4.391.11.73382 [facility] Unknown [id number] 05/24/20 15 05/24/2015 2.16.840.1.789270.4.391.11.40537 [facility] Unknown [id number] 05/24/20 15 05/24/2015 2.16.840.1.698595.4.391..71915 [facility] Unknown [id number] 05/24/20 15 05/24/2015 2.16.840.1.008238.4.391.1116335 [facility] Unknown [id number] 05/24/20 15 05/24/2015 2.16.840.1.131768.4.391.11.85532 [facility] Unknown [id number] 05/24/20 15 05/24/2015 2.16.840.1.705784.4.391.11.05714 [facility] Unknown [id number] 05/24/20 15 05/24/2015 2.16.840.1.251202.4.391.11.54244 [facility] Unknown [id number]-q2q1-4239-s468-08btd4g3z33l 05/24/20 15 05/24/2015 2.16.840.1.722949.4.391.11.07928 [facility] Unknown [id number]-q805-vula9a6ovj87 05/24/20 15 05/24/2015 2.16.840.1.921014.4.391.11.23375 [facility] Unknown [id number]-5248-ij79-744v7z31v1l3 05/24/20 15 05/24/2015 2.16.840.1.324612.4.391.11.67254 [facility] Unknown [id number]-btl9-52fj0027mc92 05/24/20 15 05/24/2015 2.16.840.1.674785.4.391.11.18590 [facility] Unknown [id number]-g4a0-7mf4-y5g5-a77g4wm22894 05/24/20 15 05/24/2015 2.16.840.1.637030.4.391.11.87059 [facility] Unknown [id number]-h15pw98c6y6q 05/24/20 15 05/24/2015 2.16.840.1.079522.4.391.11.26055 [facility] Unknown [id number]-8399-6hb3-3920-0ix8bc167e74 05/24/20 15 05/24/2015 2.16.840.1.695376.4.391.11.87083 [facility] Unknown [id number]-rkr4-406q-t30l-3cg614y1q472 05/24/20 15 05/24/2015 2.16.840.1.434047.4.391.11.91325 [facility] Unknown [id number]-5208-4060-4155-t723l82908um 05/24/20 15 05/24/2015 2.16.840.1.016647.4.391.11.51296 [facility] Unknown [id number]-8995-6l87-d802-12t8m5q1kr36 05/24/20 15 05/24/2015 2.16.840.1.502267.4.391.11.65660 [facility] Unknown 44j2y83h-8361-64u4-h6w0-veh1b3am95j7 05/24/20 15 05/24/2015 2.16.840.1.096840.4.391.11.87266 [facility] Unknown k9wrn44c-a7t8-8m79-t769-4375uz5k25we 05/24/20 15 05/24/2015 2.16.840.1.528413.4.391.11.91464 [facility] Unknown [id number]-api2-8514-r042-993web669eic 05/24/20 15 05/24/2015 2.16.840.1.736481.4.391.11.45544 [facility] Unknown 75bc67z1-2a7p-26i7-24x6-9j5b47b439xa 06/19/20 15 06/19/2015 2.16.840.1.952940.4.391.11.34498 [facility] Unknown [id number]-5lv1-8115-v035512795n7 06/19/20 15 06/19/2015 2.16.840.1.673794.4.391.11.63476 [facility] Unknown 397d9g36-l211-0x00-gy5d-5965sk1zy543 06/19/20 15 06/19/2015 2.16.840.1.631816.4.391.11.49904 [facility] Unknown [id number]-l72l-61c3-285c-8353o9jex6ob 06/19/20 15 06/19/2015 2.16.840.1.055338.4.391.11.36154 [facility] Unknown 3dg28c79-9r10-4316-559t-m5o826r73lgg 06/19/20 15 06/19/2015 2.16.840.1.277242.4.391.11.24036 [facility] Unknown [id number]-u550-473v8240y3r2 06/19/20 15 06/19/2015 2.16.840.1.299028.4.391..67639 [facility] Unknown [id number]3wj3f5ty1ou 06/19/20 15 06/19/2015 2.16.840.1.889576.4.391..14001 [facility] Unknown [id number]-rtq0-6e85-63j5-yf1t1pm19o05 06/19/20 15 06/19/2015 2.16.840.1.920378.4.391..99156 [facility] Unknown [id number]-utxi-16y6-c81v-1h362mf683ip 06/19/20 15 06/19/2015 2.16.840.1.509709.4.391..07955 [facility] Unknown [id number]-k353-3n7sj1931773 06/19/20 15 06/19/2015 2.16.840.1.575765.4.391.1156203 [facility] Unknown [id number]-2398-6441-0u5m-05c9k91uip6m 06/19/20 15 06/19/2015 2.16.840.1.464043.4.391.11.43308 [facility] Unknown [id number] 06/19/20 15 06/19/2015 2.16.840.1.761763.4.391.11.08806 [facility] Unknown [id number]-5q46-35l0-410b-n18z3123xc80 06/19/20 15 06/19/2015 2.16.840.1.094449.4.391.11.68766 [facility] Unknown [id number]-88p9-gv42-00o469ljj213 06/19/20 15 06/19/2015 2.16.840.1.644034.4.391.11.51735 [facility] Unknown [id number]-2879-9zjc-z243-4398pmh838n4 06/19/20 15 06/19/2015 2.16.840.1.653046.4.391.11.79194 [facility] Unknown 4jx7g7j6-0t9t-7072-3j8r-zm9yo6393v23 06/19/20 15 06/19/2015 2.16.840.1.024548.4.391.11.74004 [facility] Unknown [id number]-7014-287n-2561-ra5x5d66u114 06/19/20 15 06/19/2015 2.16.840.1.782012.4.391.11.45375 [facility] Unknown 00qm68g2-w025-9omo-up17-28488s556et7 06/19/20 15 06/19/2015 2.16.840.1.324253.4.391.11.16294 [facility] Unknown [id number]-h425-9v1b-wa95-g8242iup7816 06/19/20 15 06/19/2015 2.16.840.1.217755.4.391.11.52506 [facility] Unknown [id number]-7p5y-6w4v-3964-7net02r6xo78 10/09/19 16 10/09/2015 2.16.840.1.263625.4.391.11.28675 [facility] Unknown jtod1g52-296s-86uv-aix8-37eekzlbt7ds 10/09/19 16 10/09/2015 2.16.840.1.676090.4.391.11.17109 [facility] Unknown [id number]-5642b01z07or 10/09/19 16 10/09/2015 2.16.840.1.785883.4.391.11.77959 [facility] Unknown [id number]-k044-0ro5-p52b-a03x63312ta2 10/09/19 16 10/09/2015 2.16.840.1.060165.4.391.11.20088 [facility] Unknown [id number]-9s82-70d4-ujc6-1juj4881o624 10/09/19 16 10/09/2015 2.16.840.1.952334.4.391.11.11964 [facility] Unknown 92xhd1ze-227f-898n-r2n9-499s88o5x4u8 10/09/19 16 10/09/2015 2.16.840.1.339497.4.391.11.79849 [facility] Unknown i13e58j4-8s74-1lt7-835l-me0gea1fm9g6 10/09/19 16 10/09/2015 2.16.840.1.274661.4.391.11.07460 [facility] Unknown re3v39bw-8bo2-09c1-l270-9hdjdl2x9mm5 10/09/19 16 10/09/2015 2.16.840.1.187112.4.391.11.20626 [facility] Unknown bw4s331v-6p24-88no-w679-15qb88ar7b7j 10/09/19 16 10/09/2015 2.16.840.1.557321.4.391.11.55628 [facility] Unknown [id number]-8803-84w5-8d4l-491038f08st2 10/09/19 16 10/09/2015 2.16.840.1.453091.4.391.11.30571 [facility] Unknown [id number]-9z8a-15k7-786o3836ko4m 10/09/19 16 10/09/2015 2.16.840.1.898678.4.391.11.25664 [facility] Unknown gn93tsh2-450n-51x5-1733-q96r3484n78m 10/09/19 16 10/09/2015 2.16.840.1.921840.4.391.11.32141 [facility] Unknown g9cq4mb8-91du-58w9-5175-o8y95ar8h96u 10/09/19 16 10/09/2015 2.16.840.1.167935.4.391.11.98001 [facility] Unknown 2db1jzo9-9956-3l6g-ml61-82g97x56s75t 10/09/19 16 10/09/2015 2.16.840.1.560330.4.391.11.07592 [facility] Unknown [id number]-7s47-8k33941076rt 10/09/19 16 10/09/2015 2.16.840.1.054039.4.391.11.62359 [facility] Unknown [id number]-ju67-1601-zr17-880335t709o3 10/09/19 16 10/09/2015 2.16.840.1.836805.4.391.11.31369 [facility] Unknown y9x3m33c-49wp-3534-a9xb-3ta48zz9f231 10/09/19 16 10/09/2015 2.16.840.1.902340.4.391.11.63660 [facility] Unknown [id number]-2jve-9f0umjs21164 10/09/19 16 10/09/2015 2.16.840.1.302990.4.391.11.61859 [facility] Unknown [id number]-d74j-02t0-gy90-247me3o52a59 10/21/19 16 10/21/2015 2.16.840.1.962786.4.391.11.28214 [facility] Unknown [id number]-b523-61p2i3o94lup 10/21/19 16 10/21/2015 2.16.840.1.503437.4.391.11.15936 [facility] Unknown [id number]-536y-tn45-52r4801r8eql 10/21/19 16 10/21/2015 2.16.840.1.468419.4.391.11.64861 [facility] Unknown nneh2o06-81z9-8ut6-7289-o171635650ua 10/21/19 16 10/21/2015 2.16.840.1.957842.4.391.11.06212 [facility] Unknown w91o1j6i-3849-48xv-h917-ho8963gs77oy 10/21/19 16 10/21/2015 2.16.840.1.344327.4.391.11.58362 [facility] Unknown 7f4i9o39-2743-8368-qx52-95up68v20fvi 10/21/19 16 10/21/2015 2.16.840.1.361911.4.391.11.27613 [facility] Unknown 3r3w71j0-9977-080u-55b1-102b2k1g1mgp 10/21/19 16 10/21/2015 2.16.840.1.123701.4.391.11.37932 [facility] Unknown [id number]-680g-2x61-3pqk-tq11h3781ys6 10/21/19 16 10/21/2015 2.16.840.1.555585.4.391.11.53201 [facility] Unknown 5fdoqqnq-1b8m-1r0t3w8e-1d9k-n24t-6x31t2f9e4os 10/21/19 16 10/21/2015 2.16.840.1.933448.4.391.11.79285 [facility] Unknown [id number]-030v-0914-1vh9559p80g7 10/21/19 16 10/21/2015 2.16.840.1.090604.4.391.11.14357 [facility] Unknown e4r11350-075n-2p2f-gek4-2e63d6yarqyx 10/21/19 16 10/21/2015 2.16.840.1.905801.4.391.11.92467 [facility] Unknown h123fq6w-2a19-84zr-v417-p722926c7798 10/21/19 16 10/21/2015 2.16.840.1.227309.4.391.11.99971 [facility] Unknown 4y418u4h-22gv-4z69-583g-bo45i6f89808 10/21/19 16 10/21/2015 2.16.840.1.818862.4.391.11.43962 [facility] Unknown ywgv9m82-a885-4rvc-n998-rv8l5e85t793 10/21/19 16 10/21/2015 2.16.840.1.589075.4.391.11.52178 [facility] Unknown 3ikei655-9tas-7657-h738-z3gb974h2075 10/21/19 16 10/21/2015 2.16.840.1.473640.4.391.11.47110 [facility] Unknown [id number]-bnw9-7536eu66f8b1 10/21/19 16 10/21/2015 2.16.840.1.626085.4.391.11.49221 [facility] Unknown [id number]-3iri-vkfx-l6z4kwe3ucm1 10/21/19 16 10/21/2015 2.16.840.1.304017.4.391.11.84385 [facility] Unknown [id number]-v74i-wb6u832w9o2b 11/12/19 16 11/12/2015 2.16.840.1.668437.4.391.11.44711 [facility] Unknown [id number]-025s-0776-l76g-v4t55bw4991d 11/12/19 16 11/12/2015 2.16.840.1.735970.4.391.11.78385 [facility] Unknown 29g05g1y-vvea-7047-fk4z-2h774le3jj2d 11/12/19 16 11/12/2015 2.16.840.1.509522.4.391.11.53047 [facility] Unknown 5i83mwy0-j48w-04ky-ht2q-aad277n7m26u 11/12/19 16 11/12/2015 2.16.840.1.004783.4.391.11.09426 [facility] Unknown 5u95c101-1e2j-5edz-62l8-74bej5l577n2 11/12/19 16 11/12/2015 2.16.840.1.149323.4.391.11.21812 [facility] Unknown 1p0qgv81-90nt-290s-qb75-32q7bh986371 11/12/19 16 11/12/2015 2.16.840.1.304553.4.391.11.62561 [facility] Unknown 6lz460g8-b6k6-67rp-w925-2d252up165a1 11/12/19 16 11/12/2015 2.16.840.1.811373.4.391.11.29174 [facility] Unknown x2qbh6a9-y436-2k4o-9908-36qo5470u99e 11/12/19 16 11/12/2015 2.16.840.1.792689.4.391.11.45212 [facility] Unknown [id number]-z71b-rr5q9q35a721 11/12/19 16 11/12/2015 2.16.840.1.660611.4.391.11.37038 [facility] Unknown i00xg8m6-97wo-79h1-8629-85d15sm2h2y1 11/12/19 16 11/12/2015 2.16.840.1.091780.4.391.11.39748 [facility] Unknown [id number]-5ydw-033e7b7m3z26 11/12/19 16 11/12/2015 2.16.840.1.480103.4.391.11.70801 [facility] Unknown [id number]-8x59-yuye-1tk77zc5o544 11/12/19 16 11/12/2015 2.16.840.1.312515.4.391.11.78258 [facility] Unknown [id number]-827y-6843-0832-00439xxs5o14 11/12/19 16 11/12/2015 2.16.840.1.526231.4.391.11.71753 [facility] Unknown 5n08cvf2-26qq-375k-r1gf-5i66ly52n44q 11/12/19 16 11/12/2015 2.16.840.1.515642.4.391.11.97505 [facility] Unknown 5v4hz7ki-6u12-1607-xk8a-zm81g5q3uq6g 11/12/19 16 11/12/2015 2.16.840.1.888041.4.391.11.23660 [facility] Unknown [id number]-6491-038a-5ao1-v2yo8z5gev68 11/12/19 16 11/12/2015 2.16.840.1.270123.4.391.11.47829 [facility] Unknown o7v4107l-63sq-8wea-0n80-ig24q3224r0q 11/12/19 16 11/12/2015 2.16.840.1.571311.4.391.11.47234 [facility] Unknown [id number]-177i-7q3x-01ba-jm8489r1et76 11/12/19 16 11/12/2015 2.16.840.1.531582.4.391.11.02049 [facility] Unknown n5hk6d4h-30n9-0dr1-15k1-4ix05rhg009x 11/12/19 16 11/12/2015 2.16.840.1.253350.4.391.11.29679 [facility] Unknown 67my89uu-x809-3kk1-4820-63f01g52e491 11/12/19 16 11/12/2015 2.16.840.1.107845.4.391.11.26238 [facility] Unknown 5j7ta7c2-daj7-319n-g865-6079lrg2uf85 11/12/19 16 11/12/2015 2.16.840.1.708722.4.391.11.57069 [facility] Unknown dc5o63e2-ryjr-23f8-lmpx-0ydj567c8p16 11/12/19 16 11/12/2015 2.16.840.1.354796.4.391.11.78355 [facility] Unknown y85927r8-107n-8030-0y59-d4vf4035x42o 11/12/19 16 11/12/2015 2.16.840.1.041793.4.391.11.61972 [facility] Unknown 3e16qm46-9ju4-15i8-xz34-s4in8plhj2hy 11/12/19 16 11/12/2015 2.16.840.1.497598.4.391.11.33182 [facility] Unknown [id number]-82d5-t346kih308jd 11/12/19 16 11/12/2015 2.16.840.1.979894.4.391.11.29029 [facility] Unknown 86u4dy4a-95fm-061d-t32k-4m62375x9z24 11/12/19 16 11/12/2015 2.16.840.1.161993.4.391.11.37286 [facility] Unknown 354prpj4-by9b-1q59-105d-4g3hw9y88w91 11/12/19 16 11/12/2015 2.16.840.1.449795.4.391.11.38295 [facility] Unknown 82n824qz-2x5b-75za-p482-20gd9148bc25 11/12/19 16 11/12/2015 2.16.840.1.385083.4.391.11.25675 [facility] Unknown sq36d7ao-p921-469u-5oon-q8j2et6r03b8 11/12/19 16 11/12/2015 2.16.840.1.022019.4.391.11.00179 [facility] Unknown wec3shk4-ti4y-05e3-c02f-f2z8v28s5th9 11/12/19 16 11/12/2015 2.16.840.1.947150.4.391.11.13861 [facility] Unknown 3l91mz1w-0e68-9894-b558-4m48k0fs31gn 11/12/19 16 11/12/2015 2.16.840.1.628513.4.391.11.41263 [facility] Unknown z2r5551x-76d4-4ax3-1o60-66185ak323l3 11/12/19 16 11/12/2015 2.16.840.1.879110.4.391.11.37278 [facility] 3 month follow up m13d2ka9-25y6-6049-071b-6oj60x0etzzi 11/19/19 16 11/19/2015 2.16.840.1.529509.4.391.11.21842 [facility] 3 month follow up 5v1ybt1h-791h-8966-1h11-ir0qcr665e7v 11/19/19 16 11/19/2015 2.16.840.1.534810.4.391.11.70523 [facility] 3 month follow up 81ia098s-397t-2rb1-r00s-o4mya894375c 11/19/19 16 11/19/2015 2.16.840.1.580528.4.391.11.66810 [facility] 3 month follow up g52gd65a-9t6d-9svv-020f-a6s8ek8811jb 11/19/19 16 11/19/2015 2.16.840.1.684868.4.391.11.31394 [facility] 3 month follow up 4h628b72-5429-7vw9-2f6e-6546e5x61thj 11/19/19 16 11/19/2015 2.16.840.1.678486.4.391.11.68637 [facility] 3 month follow up 2bjv1492-6b42-62k9-4088-36ca31prg658 11/19/19 16 11/19/2015 2.16.840.1.889971.4.391.11.02436 [facility] 3 month follow up 091h105l-t568-3126-w15x-st029wdlvc0r 11/19/19 16 11/19/2015 2.16.840.1.548796.4.391.11.88445 [facility] 3 month follow up 7ss72f58-6792-2d95-mlr3-10ik1z2143b7 11/19/19 16 11/19/2015 2.16.840.1.537426.4.391.11.92625 [facility] 3 month follow up ndo833re-7190-480h-f234-jz99kdw1pqq7 11/19/19 16 11/19/2015 2.16.840.1.773183.4.391.11.43473 [facility] 3 month follow up ypm266me-8xmt-9z8l-5137-6wswym1ism4m 11/19/19 16 11/19/2015 2.16.840.1.364762.4.391.11.91182 [facility] 3 month follow up 033bo0al-q8p6-98zf-y138-r3021dx242ik 11/19/19 16 11/19/2015 2.16.840.1.815841.4.391.11.43524 [facility] 3 month follow up 876f361h-3860-1u2t-0391-ehgmy71e9sli 11/19/19 16 11/19/2015 2.16.840.1.670584.4.391.11.25778 [facility] 3 month follow up u29190du-0015-6855-22g6-1781975wv4w6 11/19/19 16 11/19/2015 2.16.840.1.453292.4.391.11.66758 [facility] 3 month follow up 6p7246t1-sa25-6f4v-wx11-72n734123589 11/19/19 16 11/19/2015 2.16.840.1.006158.4.391.11.29402 [facility] Unknown 3780z63x-1y34-887c-8042-xyp4n97786hk 01/10/20 16 01/10/2016 2.16.840.1.381462.4.391.11.48667 [facility] Unknown 0e0nz677-7v20-7053-1svm-3vr8q597y963 01/10/20 16 01/10/2016 2.16.840.1.481903.4.391.11.65958 [facility] Unknown 053h0396-91mx-7k14-8pr4-14djp089990k 01/10/20 16 01/10/2016 2.16.840.1.799093.4.391.11.99112 [facility] Unknown 833u4p76-i040-59l5-073m-895z13412m7g 01/10/20 16 01/10/2016 2.16.840.1.202601.4.391.11.96597 [facility] Unknown 47n2501m-di4t-38n7-j728-7dwh735kq208 01/10/20 16 01/10/2016 2.16.840.1.440632.4.391.11.99928 [facility] Unknown s753r15b-3106-75ej-k679-8ilv794j93ki 01/10/20 16 01/10/2016 2.16.840.1.837931.4.391.11.20660 [facility] Unknown 3r19j670-987k-1r3u-ol67-l7280628otz8 01/10/20 16 01/10/2016 2.16.840.1.518178.4.391.11.46392 [facility] Unknown i27jk96g-h2u2-2j93-8ie7-31c0655518m9 01/10/20 16 01/10/2016 2.16.840.1.595534.4.391.11.17405 [facility] Unknown z7q075sz-or09-6l24-682m-9811y4x812co 01/10/20 16 01/10/2016 2.16.840.1.881420.4.391.11.16341 [facility] Unknown v0nn71m3-3538-6754-397y-244nq5a76685 01/10/20 16 01/10/2016 2.16.840.1.837513.4.391.11.36955 [facility] Unknown 812rl7m9-ne44-0i4k-rx99-0cd85yv07239 01/10/20 16 01/10/2016 2.16.840.1.208626.4.391.11.32309 [facility] Unknown t354hj3e-4uv7-41pf-366i-8l9y96z4328h 01/10/20 16 01/10/2016 2.16.840.1.980995.4.391.11.51669 [facility] Unknown p5344x13-5m24-87d1-n470-24s0x7j63w0v 01/10/20 16 01/10/2016 2.16.840.1.889539.4.391.11.84004 [facility] Unknown [id number]-3418-4927-6l0j-85vc80v0189g 02/29/20 16 02/29/2016 2.16.840.1.817512.4.391.11.16865 [facility] Unknown 4u355e56-2lm7-43s5-eu03-32qs924jh7gd 02/29/20 16 02/29/2016 2.16.840.1.779225.4.391.11.02355 [facility] Unknown g2qkoq58-aa7h-7m2i-z17e-2e0500d7o5iq 02/29/20 16 02/29/2016 2.16.840.1.427615.4.391.11.56391 [facility] Unknown 7s33k8k4-k283-769r-5j28-65j1s9qv24ia 02/29/20 16 02/29/2016 2.16.840.1.758198.4.391.11.47513 [facility] Unknown [id number]-7f25-9gsg-a64d-86m28568450o 02/29/20 16 02/29/2016 2.16.840.1.648836.4.391.11.73679 [facility] Unknown [id number]-z24d-q7o5057o4wb1 02/29/20 16 02/29/2016 2.16.840.1.869813.4.391.11.55457 [facility] Unknown [id number]-1ez4-kiya4m77n09a 02/29/20 16 02/29/2016 2.16.840.1.526554.4.391.11.98957 [facility] Unknown [id number] 02/29/20 16 02/29/2016 2.16.840.1.348982.4.391.11.96044 [facility] Unknown [id number]-[id number] 02/29/20 16 02/29/2016 2.16.840.1.778180.4.391.11.87682 [facility] Unknown [id number]-v8kt-[id number] 02/29/20 16 02/29/2016 2.16.840.1.567471.4.391.11.31790 [facility] Unknown [id number] 02/29/20 16 02/29/2016 2.16.840.1.033647.4.391.11.52658 [facility] Unknown [id number]-[id number] 02/29/20 16 02/29/2016 2.16.840.1.397782.4.391.11.05144 [facility] Refill [id number]-z8di-[id number] 03/03/20 16 03/03/2016 2.16.840.1.439467.4.391.11.94050 [facility] Refill [id number]-szm4-15c4-vs74-cek7t89zsia5 03/03/20 16 03/03/2016 2.16.840.1.255579.4.391.11.05103 [facility] Refill [id number]-816y-1417-7349b1j82syn 03/03/20 16 03/03/2016 2.16.840.1.750836.4.391.11.39724 [facility] Refill [id number]-4ns2-x760-y7237i328680 03/03/20 16 03/03/2016 2.16.840.1.803598.4.391.11.86128 [facility] Refill [id number]-0tak-0fdu-l87v-z18zb6a42o0g 03/03/20 16 03/03/2016 2.16.840.1.717007.4.391.11.83740 [facility] Refill [id number]-qb02-4a1wxo6e58v4 03/03/20 16 03/03/2016 2.16.840.1.166531.4.391.11.28786 [facility] Refill mp80bmk1-c0ln-9007-7479-wg7q19m44r9u 03/03/20 16 03/03/2016 2.16.840.1.441025.4.391.11.77038 [facility] Refill [id number]-y139-61h8-qrsw-40o1a6mobc2j 03/03/20 16 03/03/2016 2.16.840.1.051693.4.391.11.16832 [facility] Refill [id number]-337m-s0n6-841e1q169v3k 03/03/20 16 03/03/2016 2.16.840.1.649317.4.391.11.70321 [facility] Refill [id number]-3snkg15s9418 03/03/20 16 03/03/2016 2.16.840.1.076991.4.391.11.97761 [facility] Refill [id number]-0l41-29b3-ez31-94m88xe144an 03/03/20 16 03/03/2016 2.16.840.1.034672.4.391.11.03955 [facility] Unknown [id number]-[id number] 03/27/20 16 03/27/2016 2.16.840.1.815337.4.391.11.73979 [facility] Unknown [id number]-73hu-96sy1qke01r3 03/27/20 16 03/27/2016 2.16.840.1.710639.4.391.11.68225 [facility] Unknown [id number]-t1x8-9r5c-y1q9-5w2sex8j6659 03/27/20 16 03/27/2016 2.16.840.1.413744.4.391.11.14508 [facility] Unknown [id number]-y5p68y37r01d 03/27/20 16 03/27/2016 2.16.840.1.612637.4.391.11.78163 [facility] Unknown [id number]-[id number] 03/27/20 16 03/27/2016 2.16.840.1.949774.4.391.11.54675 [facility] Unknown [id number]-[id number] 03/27/20 16 03/27/2016 2.16.840.1.475319.4.391.11.67905 [facility] Unknown [id number] 03/27/20 16 03/27/2016 2.16.840.1.557338.4.391.11.31778 [facility] Unknown [id number]-038j-[id number] 03/27/20 16 03/27/2016 2.16.840.1.792274.4.391.11.58093 [facility] Unknown [id number]-[id number] 03/27/20 16 03/27/2016 2.16.840.1.953531.4.391.11.72628 [facility] Unknown [id number]-8j5t-0mx6-170x-57t6u96cynps 03/27/20 16 03/27/2016 2.16.840.1.615147.4.391.11.95352 [facility] Unknown [id number]-xsg8-3951iy37h99j 03/31/20 16 03/31/2016 2.16.840.1.881820.4.391.11.62021 [facility] Unknown [id number]-9a8o-97e2-or21-7338wv26pygb 03/31/20 16 03/31/2016 2.16.840.1.063994.4.391.11.48436 [facility] Unknown [id number]-w6vw3oi57q70 03/31/20 16 03/31/2016 2.16.840.1.010318.4.391.11.40364 [facility] Unknown [id number] 03/31/20 16 03/31/2016 2.16.840.1.436407.4.391.11.13249 [facility] Unknown [id number]-000x-[id number] 03/31/20 16 03/31/2016 2.16.840.1.874078.4.391.11.95885 [facility] Unknown [id number] 03/31/20 16 03/31/2016 2.16.840.1.758932.4.391.11.81926 [facility] Unknown [id number]-vt077t3kg0n3 03/31/20 16 03/31/2016 2.16.840.1.842199.4.391.11.65846 [facility] Unknown [id number]-6x75-37x48kwq1au6 03/31/20 16 03/31/2016 2.16.840.1.685764.4.391.11.32682 [facility] Unknown [id number]-fzq9-i32z5l34o042 03/31/20 16 03/31/2016 2.16.840.1.748132.4.391.11.48664 [facility] Unknown [id number]-[id number]-[id number] 03/31/20 16 03/31/2016 2.16.840.1.618611.4.391.11.64453 [facility] Unknown [id number] 03/31/20 16 03/31/2016 2.16.840.1.157516.4.391.11.86318 [facility] Unknown [id number] 03/31/20 16 03/31/2016 2.16.840.1.720272.4.391.11.82867 [facility] Unknown [id number]-[id number] 03/31/20 16 03/31/2016 2.16.840.1.744937.4.391.11.49923 [facility] Unknown [id number] 03/31/20 16 03/31/2016 2.16.840.1.028966.4.391.11.50218 [facility] Unknown [id number] 03/31/20 16 03/31/2016 2.16.840.1.126409.4.391.11.09869 [facility] Unknown [id number]-j1ts-9e9p2m959ptr 03/31/20 16 03/31/2016 2.16.840.1.689666.4.391.11.39928 [facility] Unknown [id number] 03/31/20 16 03/31/2016 2.16.840.1.479753.4.391.11.17442 [facility] Unknown [id number] 03/31/20 16 03/31/2016 2.16.840.1.581898.4.391.11.17274 [facility] Unknown [id number] 03/31/20 16 03/31/2016 2.16.840.1.497361.4.391.11.78793 [facility] Unknown [id number] 03/31/20 16 03/31/2016 2.16.840.1.283696.4.391.11.80846 [facility] Unknown [id number] 03/31/20 16 03/31/2016 2.16.840.1.902682.4.391.11.63543 [facility] Unknown [id number] 03/31/20 16 03/31/2016 2.16.840.1.972669.4.391.11.40213 [facility] Unknown [id number] 03/31/20 16 03/31/2016 2.16.840.1.579726.4.391.11.03946 [facility] Unknown [id number] 03/31/20 16 03/31/2016 2.16.840.1.764307.4.391.11.75836 [facility] Unknown [id number] 03/31/20 16 03/31/2016 2.16.840.1.750366.4.391.11.44410 [facility] Unknown [id number] 03/31/20 16 03/31/2016 2.16.840.1.210687.4.391.11.72348 [facility] Unknown [id number] 03/31/20 16 03/31/2016 2.16.840.1.931278.4.391.11.48956 [facility] ALSO NEEDS REFERRAL FOR THROID BIOPSY [id number] 06/15/2016 06/15/2016 2.16.840.1.055668.4.391.11.[address] [place] [address] ALSO NEEDS REFERRAL FOR THROID BIOPSY [id number] 06/15/2016 06/15/2016 2.16.840.1.753278.4.391.11.[address] [place] [address] ALSO NEEDS REFERRAL FOR THROID BIOPSY [id number] 06/15/2016 06/15/2016 2.16.840.1.112214.4.391.11.[address] [place] [address] ALSO NEEDS REFERRAL FOR THROID BIOPSY [id number] 06/15/2016 06/15/2016 2.16.840.1.212084.4.391.11.[address] [place] [address] ALSO NEEDS REFERRAL FOR THROID BIOPSY [id number] 06/15/2016 06/15/2016 2.16.840.1.152063.4.391.11.[address] [place] [address] ALSO NEEDS REFERRAL FOR THROID BIOPSY [id number] 06/15/2016 06/15/2016 2.16.840.1.955786.4.391.11.[address] [place] [address] 2 month f/u [id number] 09/15/19 17 09/15/2016 2.16.840.1.721204.4.391.11.77268 [facility] 2 month f/u [id number] 09/15/19 17 09/15/2016 2.16.840.1.482758.4.391.11.59379 [facility] 2 month f/u [id number] 09/15/19 17 09/15/2016 2.16.840.1.890699.4.391.11.92981 [facility] Unknown [id number] 09/16/19 17 09/16/2016 2.16.840.1.714556.4.391.11.20401 [facility] Unknown [id number] 09/16/19 17 09/16/2016 2.16.840.1.550952.4.391.11.60034 [facility] Unknown [id number] 09/16/19 17 09/16/2016 2.16.840.1.706386.4.391.11.88214 [facility] Unknown [id number] 09/16/19 17 09/16/2016 2.16.840.1.019553.4.391.11.26191 [facility] Unknown [id number] 09/16/19 17 09/16/2016 2.16.840.1.337270.4.391.11.94480 [facility] Unknown [id number] 09/21/19 17 09/21/2016 2.16.840.1.870304.4.391.11.85478 [facility] Unknown [id number] 09/21/19 17 09/21/2016 2.16.840.1.752429.4.391.11.64187 [facility] Unknown [id number] 09/21/19 17 09/21/2016 2.16.840.1.257343.4.391.11.16955 [facility] Unknown [id number] 09/21/19 17 09/21/2016 2.16.840.1.977733.4.391.11.16560 [facility] Unknown [id number] 10/08/19 17 10/07/2016 2.16.840.1.395758.4.391.11.95210 [facility] Unknown [id number] 10/08/19 17 10/07/2016 2.16.840.1.002029.4.391.11.58052 [facility] Unknown [id number] 10/09/19 17 10/08/2016 2.16.840.1.745903.4.391.11.66118 [facility] Unknown [id number] 10/09/19 17 10/08/2016 2.16.840.1.337028.4.391.11.67614 Procedures No Data Provided for This Section Assessment and Plan No Data Provided for This Section Plan of Care No Data Provided for This Section Social History Social History Date Source Social History ElementQualifiersDate Rep orted Tobacco Use: . Are you a: current smoker Sep 15, 2016 Use of recreational / street drugs? . Answer: No Sep 15, 2016 Marital Status: . Sep 15, 2016 Do you exercise? . Answer: No Sep 15, 2016 Do you drink alcohol? . Status: No Sep 15, 2016 Travel outside [place]: . 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
--- OUTSIDE RECORDS SUMMARY | 2019-12-06 20:17 | XMS REPORT ---
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 Active Problem IBS (irritable bowel syndrome) K58.9 Active Medications Medication Code System Code Instructions Start Date End Date Status Dosage Soma [facility] 37877368904 350 MG Orally Four times a day Apr 01, 2017 December 20, 2017 Active 1 tablet Klonopin [facility] 56634300231 2 MG Orally Twice a day November 10, 2016 Active 1 tablet Clonidine HCl [facility] 91481528292 0.3 MG Orally Twice a day Active 1 tablet Meclizine HCl [facility] 06016054764 25 MG Orally twice a day (bid) Jan Active 1 tablet as needed Results No Known Results Summary Purpose eClinicalWorks Submission
--- OUTSIDE RECORDS SUMMARY | 2019-12-06 20:17 | XMS REPORT ---
Author Author NELY Nagel Organization [employer] Address Unknown Phone Unavailable Care Team Providers Care Marketing Manager Name Role Phone Elvi Nagel CP Unavailable Allergies, Adverse Reactions, Alerts Substance Reaction Event Type penicillin Info Not Available Drug Allergy sulfa Info Not Available Drug Allergy Codeine Phosphate Info Not Available Drug Allergy Cipro Info Not Available Drug Allergy Problems Problem Type Condition Code [...] HTN (hypertension), benign I10 A ctive Assessment Cervicalgia M54.2 Active Assessment IBS (irritable bowel syndrome) K58.9 Active Assessment Vertigo R42 Active Assessment Other chronic pain G89.29 Active Problem Anxiety F41.9 Active Assessment Anxiety F41.9 Active Problem IBS (irritable bowel syndrome) K58.9 Active Medications Medication Code System Code Instructions Start Date End Date Status Dosage Soma [facility][NOTE 3] [address]-65 350 MG Orally Four times a day Active 1 tablet as needed Promethazine-DM [facility][NOTE 3] [address]-57 6.25-15 MG/5ML Orally ev roque 4- 6 hrs Sep 21, 2016 Active 5 ml as needed Clonidine HCl [facility][NOTE 3] 58867022675 0.3 Active TAKE O NE TABLET BY MOUTH TWICE A DAY Dicyclomine HCl [facility][NOTE 3] [address]-53 20 mg Orally Four times a da y November 20, 2017 Active 1 tablet Orma [facility][NOTE 3] [address]-43 10-325 MG Orally three times a day (tid) as needed (prn) Jul 15, 2016 Active 1 tablet as need ed Clonidine HCl [facility][NOTE 3] [address]-48 0.3 MG Orally twice a day (bid) Active 1 tablet Protonix [facility][NOTE 3] [address]-90 40 MG Orally Once a day Sep 15, 2016 Active 1 tablet Lisinopril [facility][NOTE 3] [address]-72 40 MG Orally twice a day (bid) Active 1 tablet Dicyclomine HCl [facility][NOTE 3] 18496346836 20 Active TAKE ONE TABLET BY MOUTH FOUR TIMES A DAY Meclizine HCl [facility][NOTE 3] [address]-35 25 MG Orally twice a day (bid) J 2016 Active 1 tablet as needed Klonopin [facility][NOTE 3] [address]-38 2 MG Orally Twice a day November 10, 2016 Active 1 tablet Soma [facility][NOTE 3] 29368648433 350 Active TAKE ONE TAB LET BY MOUTH FOUR TIMES A DAY NEEDED Dicyclomine HCl [facility][NOTE 3] 89477207857 20 Orally Active T JAYLEN ONE TABLET BY MOUTH FOUR TIMES A DAY Vital Signs Date/Time: February 23, 2017 BMI 28.86 Index Weight 164.5 lbs Height 63.3 in Temperature 99.0 F Cardiac Monitoring Heart Rate 73 /min Blood Pressure Diastolic 97 mm Hg Blood Pressure Systolic 134 mm Hg Results No Known Results Summary Purpose eClinicalWorks Submission
--- OUTSIDE RECORDS SUMMARY | 2019-12-06 20:17 | XMS REPORT ---
Author Author NELY Nagel Organization [employer] Address Unknown Phone Unavailable Care Team Providers Care Blow Pit Operator Name Role Phone Elvi Nagel CP [...]
--- OUTSIDE RECORDS SUMMARY | 2019-12-06 20:17 | XMS REPORT ---
Author Author NELY Nagel Organization [employer] Address Unknown Phone Unavailable Care Team Providers Care Sack Sorter Name Role Phone Elvi Nagel CP Unavailable [...] End Date Status Dosage Clonidine HCl [facility] 05625148969 0.3 MG Orally Twice a day Active 1 tablet Results No Known Results Summary Purpose eClinicalWorks Submission
--- OUTSIDE RECORDS SUMMARY | 2019-12-06 20:17 | XMS REPORT ---
Author Author NELY Nagel Organization [employer] Address Unknown Phone Unavailable Care Team Providers Care Produce Department Manager Name Role Phone Elvi Nagel CP [...] Start Date End Date Status Dosage Soma [facility] 27749808970 350 MG Orally three times a day (ti d) Sep 27, 2018 November 26, 2018 Active 1 tablet as needed Soma [facility] 56844320336 350 Orally three times a day (tid) November 26, 2018 Inactive 1 tablet Results No Known Results Summary Purpose eClinicalWorks Submission
--- OUTSIDE RECORDS SUMMARY | 2019-12-06 20:17 | XMS REPORT ---
Author Author NELY Nagel Organization [employer] Address Unknown Phone Unavailable Care Team Providers Care Tree Deadener Name Role Phone Elvi Nagel CP Unavailable [...] Start Date End Date Status Dosage Klonopin [facility] [address]-11 2 MG Orally Twice a day November 10, 2016 Active 1 tablet Carisoprodol [facility] [address]-19 350 MG Orally Four times a day November 10, 2016 December 10, 2016 Active 1 tablet as needed Results No Known Results Summary Purpose eClinicalWorks Submission
--- OUTSIDE RECORDS SUMMARY | 2019-12-06 20:17 | XMS REPORT ---
Author Author NELY Waller Organization [employer] Address Unknown Phone Unavailable Care Team Providers Care Supplier Quality Manager Name Role Phone Eamon Waller CP Unavailable [...] G89.29 Active Problem Cervicalgia M54.2 Active Assessment GERD without esophagitis K21.9 Act maya Assessment Vertigo R42 Active Assessment HTN (hypertension), benign I10 A ctive Assessment Cervicalgia M54.2 Active Assessment IBS (irritable bowel syndrome) K58.9 Active Problem Anxiety F41.9 Active Assessment Anxiety F41.9 Active Problem IBS (irritable bowel syndrome) K58.9 Active Medications Medication Code System Code Instructions Start Date End Date Status Dosage Protonix [facility] [address]-38 40 MG Orally Once a day Sep 15, 2016 Inactive 1 tablet Meclizine HCl [facility] [address]-31 25 MG Orally twice a day (bid) J 2016 Active 1 tablet as needed Soma [facility] [address]-14 350 MG Orally Four times a day Mar 042016Jul 03, 2017 Active 1 tablet [place] [facility] [address]-73 10-325 MG Orally four times a day (q id) Jul 15, 2016 Active 1 tablet as needed Clonidine HCl [facility] [address]-73 0.3 MG Orally Twice a day Active 1 tablet Dicyclomine HCl [facility] [address]-18 20 mg Orally Four times a day January 08, 2018 Active 1 tablet Klonopin [facility] [address]-35 2 MG Orally Twice a day November 10, 2016 Active 1 tablet Lisinopril [facility] [address]-58 40 MG Orally twice a day (bid) Active 1 tablet Vital Signs Date/Time: Jun 03, 2017 BMI 29.11 Index Weight 165.9 lbs Height 63.3 in Temperature 98.1 F Cardiac Monitoring Heart Rate 81 /min Blood Pressure Diastolic 89 mm Hg Blood Pressure Systolic 143 mm Hg Results No Known Results Summary Purpose eClinicalWorks Submission
--- OUTSIDE RECORDS SUMMARY | 2019-12-06 20:17 | XMS REPORT ---
Author Author NELY Nagel Organization [employer] Address Unknown Phone Unavailable Care Team Providers Care Blowing Weasand Name Role Phone Elvi Nagel CP Unavailable [...] Start Date End Date Status Dosage Soma [facility] 81618498416 350 Active TAKE ONE TAB LET BY MOUTH THREE TIMES A DAY Results No Known Results Summary Purpose eClinicalWorks Submission
--- OUTSIDE RECORDS SUMMARY | 2019-12-06 20:17 | XMS REPORT ---
Author Author NELY Nagel Organization [employer] Address Unknown Phone Unavailable Care Team Providers Care Media Job Titles Name Role Phone Elvi Nagel CP Unavailable [...] Start Date End Date Status Dosage Lisinopril [facility] [address]-80 40 MG Orally twice a day (bid) Active 1 tablet Clonidine HCl [facility] 52911317113 0.3 Active TAKE O NE TABLET BY MOUTH TWICE A DAY Klonopin [facility] [address]-30 2 MG Orally Twice a day November 10, 2016 Active 1 tablet Carisoprodol [facility] [address]-38 350 MG Orally Four times a day November 10, 2016 December 10, 2016 Active 1 tablet as needed Results No Known Results Summary Purpose eClinicalWorks Submission
--- OUTSIDE RECORDS SUMMARY | 2019-12-06 20:17 | XMS REPORT ---
Author Author NELY Nagel Organization [employer] Address Unknown Phone Unavailable Care Team Providers Care Licensed Occupational Therapist Name Role Phone Elvi Nagel CP Unavailable [...]
--- OUTSIDE RECORDS SUMMARY | 2019-12-06 20:18 | XMS REPORT ---
Author Author NELY Nagel Organization [employer] Address Unknown Phone Unavailable Care Team Providers Care Blister Rust Eradicator Name Role Phone Elvi Nagel CP Unavailable Allergies, Adverse Reactions, Alerts Substance Reaction Event Type penicillin Info Not Available Drug Allergy sulfa Info Not Available Drug Allergy Codeine Phosphate Info Not Available Drug Allergy Cipro Info Not Available Drug Allergy Encounters Encounter Location Date Unknown [facility] May 24, 2015 Unknown [facility] May 24, 2015 Unknown [facility] Jun 19, 2015 Unknown [facility] October 09, 2015 Unknown [facility] Apr 29, 2015 Unknown [facility] Apr 29, 2015 Unknown [facility] May 23, 2015 Unknown [facility] November 12, 2015 Unknown [facility] Sep 21, 2016 Unknown [facility] Sep 16, 2016 Unknown [facility] October 21, 2015 Unknown [facility] November 12, 2015 Unknown [facility] Mar 31, 2016 Unknown [facility] Mar 31, 2016 Unknown [facility] Mar 27, 2016 Unknown [facility] Mar 31, 2016 2 month f/u [facility] Sep 15, 2016 Unknown [facility] February 29, 2016 Refill [facility] Mar 03, 2016 3 month follow up [facility] November 19, 2015 Unknown [facility] January 10, 2016 ALSO NEEDS REFERRAL FOR THROID BIOPSY [facility] up Jun 15, 2016 Problems Problem Type Condition ICD-9 Code Onset Dates Condition Statu s Assessment IBS (irritable bowel syndrome) K58.9 Active Problem Anxiety F41.9 Active Assessment GERD without esophagitis K21.9 Act maya Assessment Bronchitis J40 Active Assessment Cervical disc disease with myelopathy M50.00 Active Problem Thyroid nodule E04.1 Active Problem Cervical disc disease with myelopathy M50.00 Active Problem GERD without esophagitis K21.9 Act maya Problem IBS (irritable bowel syndrome) K58.9 Active Problem HTN (hypertension) I10 Active Problem Insomnia G47.00 Active Problem Crohn disease K50.90 Active Medications Medication Code System Code Instructions Start Date End Date Status Dosage [facility] [address]-88 10-325 MG Orally three times a day (tid) as needed (prn) Jul 15, 2016 Active 1 tablet as need ed Protonix [facility] [address]-20 40 MG Orally Once a day Sep 15, 2016 Active 1 tablet Lisinopril [facility] [address]-87 40 mg Orally twice a day (bid) Active 1 tablet Klonopin [facility] [address]-76 2 MG Orally Twice a day Active 1 tablet Clonidine HCl [facility] 96015197022 0.3 Active TAKE ONE TABLET BY MOUTH TWICE A DAY Dicyclomine HCl [facility] 74908473459 20 Active ALON E ONE TABLET BY MOUTH FOUR TIMES A DAY Ceftin [facility] [address]-97 500 MG Orally Twice a day Sep 15, 2016 Sep 25, 2016 Active 1 tablet Clonidine HCl [facility] [address]-48 0.3 MG Orally twice a day (bid) Active 1 tablet Soma [facility] 31578217961 350 Active TAKE ONE TA BLET BY MOUTH FOUR TIMES A DAY [facility]ED [facility] [address]-22 350 MG Orally Four times a day Active 1 tablet as needed Social History Social History Element Qualifiers Date Reported Tobacco Use: . Are you a: current smoker Sep 15 7 Use of recreational / street drugs? . Answer: No Sep 15, 2016 Marital Status: . Sep 15, 2016 Do you exercise? . Answer: No Sep 15, 2016 Do you drink alcohol? . Status: No Sep 15, 2016 Travel outside [place]: . 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
--- OUTSIDE RECORDS SUMMARY | 2019-12-06 20:18 | XMS REPORT ---
Author Author NELY Nagel [facility] eClinicalWorks Address Unknown Phone Unavailable Care Team Providers Care Remediation Bioanalytics Consultant Name Role Phone Elvi Nagel Unavailable Encounters Encounter Location Date Unknown [facility] May 24, 2015 Unknown [facility] May 24, 2015 Unknown [facility] Jun 19, 2015 Unknown [facility] October 09, 2015 Unknown [facility] Apr 29, 2015 Unknown [facility] Apr 29, 2015 Unknown [facility] May 23, 2015 Unknown [facility] November 12, 2015 Unknown [facility] Sep 21, 2016 Unknown [facility] Sep 16, 2016 Unknown [facility] October 21, 2015 Unknown [facility] November 12, 2015 Unknown [facility] Mar 31, 2016 Unknown [facility] Mar 31, 2016 Unknown [facility] Mar 27, 2016 Unknown [facility] Mar 31, 2016 Unknown [facility] February 29, 2016 Refill [facility] Mar 03, 2016 3 month follow up [facility] November 19, 2015 Unknown [facility] January 10, 2016 ALSO NEEDS REFERRAL FOR THROID BIOPSY [facility] up Jun 15, 2016 Problems Problem Type Condition ICD-9 Code Onset Dates Condition Statu s Problem [...] Start Date End Date Status Dosage Promethazine-DM [facility] [address]-55 6.25-15 MG/5ML Orally ev roque 4- 6 hrs Sep 21, 2016 Active 5 ml as needed Social History Social History Element Qualifiers Date Reported Tobacco Use: . Are you a: current smoker Sep 15 201 7 Use of recreational / street drugs? . Answer: No Sep 15, 2016 Marital Status: . Sep 15, 2016 Do you exercise? . Answer: No Sep 15, 2016 Do you drink alcohol? . Status: No Sep 15, 2016 Travel outside [place]: . 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
--- OUTSIDE RECORDS SUMMARY | 2019-12-06 20:18 | XMS REPORT ---
Author Author NELY Nagel [facility] eClinicalWorks Address Unknown Phone Unavailable Care Team Providers Care Nurse Aide Evaluator Name Role Phone Elvi Nagel Unavailable Encounters Encounter Location Date Unknown [facility] May 24, 2015 Unknown [facility] May 24, 2015 Unknown [facility] Jun 19, 2015 Unknown [facility] October 09, 2015 Unknown [facility] Apr 29, 2015 Unknown [facility] Apr 29, 2015 Unknown [facility] May 23, 2015 Unknown [facility] November 12, 2015 Unknown [facility] Sep 21, 2016 Unknown [facility] Sep 16, 2016 Unknown [facility] October 21, 2015 Unknown [facility] November 12, 2015 Unknown [facility] Mar 31, 2016 Unknown [facility] Mar 31, 2016 Unknown [facility] Mar 27, 2016 Unknown [facility] Mar 31, 2016 2 month f/u [facility] Sep 15, 2016 Unknown [facility] February 29, 2016 Unknown [facility] October 07, 2016 Refill [facility] Mar 03, 2016 Unknown [facility] October 08, 2016 3 month follow up [facility] November 19, 2015 Unknown [facility] January 10, 2016 ALSO NEEDS REFERRAL FOR THROID BIOPSY [facility] up Jun 15, 2016 Problems Problem Type Condition ICD-9 Code Onset Dates Condition Statu s Assessment Crohn disease K50.90 Active Problem Anxiety F41.9 Active Assessment HTN (hypertension) I10 Active Assessment GERD without esophagitis K21.9 Act maya Assessment Anxiety F41.9 Active Problem Thyroid nodule E04.1 Active Problem Cervical disc disease with myelopathy M50.00 Active Problem GERD without esophagitis K21.9 Act maya Problem IBS (irritable bowel syndrome) K58.9 Active Problem HTN (hypertension) I10 Active Problem Insomnia G47.00 Active Problem Crohn disease K50.90 Active Medications Medication Code System Code Instructions Start Date End Date Status Dosage [facility] 59295357579 0.3 Active TAKE ONE TABLET BY MOUTH TWICE A DAY Klonopin [facility] [address]-41 2 MG Orally Twice a day Active 1 tablet Dicyclomine HCl [facility] [address]-01 20 mg Orally Four times a da y Apr 05, 2017 Active 1 tablet Carisoprodol [facility] [address]-97 350 MG Orally Four times a day December 08, 2015 Active 1 tablet as needed Lisinopril [facility] [address]-84 40 MG Orally twice a day (bid) Active 1 tablet Social History Social History Element Qualifiers Date [...] . 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
--- OUTSIDE RECORDS SUMMARY | 2019-12-06 20:18 | XMS REPORT ---
Author Author NELY Nagel [facility] eClinicalWorks Address Unknown Phone Unavailable Care Team Providers Care Wirer Name Role Phone Elvi Nagel Unavailable Encounters Encounter Location Date Unknown [facility] May 24, [address] [facility] May 24, [address] [facility] Jun 19, [address] [facility] October 09, [address] [facility] Apr 29, [address] [facility] Apr 29, [address] [facility] May 23, [address] [facility] November 12, [address] [facility] Sep 21, [address] [facility] Sep 16, [address] [facility] October 21, [address] [facility] November 12, [address] [facility] Mar 31, [address] [facility] Mar 31[facility] [address] [facility] Mar 27, [address] [facility] Mar 31, 2016 2 month f/u [facility] Sep 15, [address] [facility] February 29, [address] [facility] October 07[facility] [address] [facility] Mar 03, [address] [facility] October 08, [address] [facility] November 19, [address] [facility] January 10, 2016 ALSO NEEDS REFERRAL FOR THROID BIOPSY [facility] Matthew up Jun 15, 2016 Problems [...] Start Date End Date Status Dosage Klonopin [facility] [address]-51 2 MG Orally Twice a day Active 1 tablet Carisoprodol [facility] [address]-33 350 MG Orally Four times a day December 08, 2015 Active 1 tablet as needed Social History Social History Element Qualifiers Date Reported Tobacco Use: . Are you a: current smoker Feb 14, 201 7 Use of recreational / street drugs? . Answer: No Sep 15, 2016 Marital Status: . Sep 15, 2016 Do you exercise? . Answer: No Sep 15, 2016 Do you drink alcohol? . Status: No Sep 15, 2016 Travel outside [place]: . 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
--- OUTSIDE RECORDS SUMMARY | 2019-12-06 20:18 | XMS REPORT ---
Author Author NELY Nagel [facility] eClinicalWorks Address Unknown Phone Unavailable Care Team Providers Care Automatic Washer Mechanic Name Role Phone Elvi Nagel Unavailable Encounters Encounter Location Date Unknown [facility] May 24, 2015 Unknown [facility] May 24, 2015 Unknown [facility] Jun 19, 2015 Unknown [facility] October 09, 2015 Unknown [facility] Apr 29, 2015 Unknown [facility] Apr 29, 2015 Unknown [facility] May 23, 2015 Unknown [facility] November 12, 2015 Unknown [facility] October 21, 2015 Unknown [facility] November 12, 2015 Unknown [facility] Mar 31, 2016 Unknown [facility] Mar 31, 2016 Unknown [facility] Mar 27, 2016 Unknown [facility] Mar 31, 2016 Unknown [facility] February 29, 2016 Refill [facility] Mar 03, 2016 3 month follow up [facility] November 19, 2015 [facility] January 10, 2016 Problems Problem Type Condition ICD-9 Code Onset Dates Condition Statu s Problem Insomnia G47.00 Active Problem Crohn disease K50.90 Active Problem Cervical disc disease with myelopathy M50.00 Active Problem Anxiety F41.9 Active Assessment Cervical disc disease with myelopathy M50.00 Active Problem IBS (irritable bowel syndrome) K58.9 Active Problem HTN (hypertension) I10 Active Medications Medication Code System Code Instructions Start Date End Date Status Dosage [facility] [address]-54 350 MG Orally Four times a day Active 1 tablet as needed Social History Social History Element Qualifiers Date Reported Tobacco Use: . Are you a: current smoker February 17 16 Use of recreational / street drugs? . Answer: No February 18, 2016 Marital Status: . February 18, 2016 Do you exercise? . Answer: No February 18, 2016 Do you drink alcohol? . Status: No February 18, 2016 Travel outside [place]: . 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
--- OUTSIDE RECORDS SUMMARY | 2019-12-06 20:18 | XMS REPORT ---
Author Author NELY Nagel Organization eClinicalWorks Address Unknown Phone Unavailable Care Team Providers Care Digital Content Specialist Name Role Phone Elvi Nagel Unavailable Encounters Encounter Location Date Unknown [facility] May 24, 2015 Unknown [facility] May 24, 2015 Unknown [facility] Jun 19, 2015 Unknown [facility] October 09, 2015 Unknown [facility] Apr 29, 2015 Unknown [facility] Apr 29, 2015 Unknown [facility] May 23, 2015 Unknown [facility] November 12, 2015 Unknown [facility] October 21, 2015 Unknown [facility] November 12, 2015 Problems Problem Type Condition ICD-9 Code Onset Dates Condition Statu s Problem Anxiety F41.9 Active Problem Irritable bowel syndrome K58.9 Act maya Problem HTN (hypertension) I10 Active Problem HTN (hypertension) 401.9 Active Assessment Anxiety F41.9 Active Medications Medication Code System Code Instructions Start Date End Date Status Dosage Carisoprodol [facility] [address]-52 350 MG Orally Four times a day December 08, 2015 Active 1 tablet as needed Klonopin [facility] [address]-48 2 MG Orally Twice a day Active 1 tablet Social History Social History Element Qualifiers Date Reported Tobacco Use: . Are you a: current smoker Aug 20 6 Use of recreational / street drugs? . Answer: No Aug 20, 2015 Marital Status: . Aug 20, 2015 Do you exercise? . Answer: No Aug 20, 2015 Do you drink alcohol? . Status: No Aug 20, 2015 Travel outside [place]: . 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
--- OUTSIDE RECORDS SUMMARY | 2019-12-06 20:18 | XMS REPORT ---
Author Author NELY Nagel Organization eClinicalWorks Address Unknown Phone Unavailable Care Team Providers Care Textile Designs Sales Representative Name Role Phone Elvi Nagel CP Unavailable [...] Start Date End Date Status Dosage Carisoprodol [facility] [address]-09 350 MG Orally Four times a day November 10, 2016 December 10, 2016 Active 1 tablet as needed Klonopin [facility] [address]-61 2 MG Orally Twice a day November 10, 2016 Active 1 tablet Results No Known Results Summary Purpose eClinicalWorks Submission
--- OUTSIDE RECORDS SUMMARY | 2019-12-06 20:18 | XMS REPORT ---
Author Author NELY Nagel [facility] eClinicalWorks Address Unknown Phone Unavailable Care Team Providers Care Theater Education Teacher Name Role Phone Elvi Nagel Unavailable Encounters Encounter Location Date Unknown [facility] May 24, 2015 Unknown [facility] May 24, 2015 Unknown [facility] Jun 19, 2015 Unknown [facility] Apr 29, 2015 Unknown [facility] Apr 29, 2015 Unknown [facility] May 23, 2015 Problems Problem Type Condition ICD-9 Code Onset Dates Condition Statu s Problem HTN (hypertension) 401.9 Active Medications Medication Code System Code Instructions Start Date End Date Status Dosage Lisinopril [facility] [address]-60 40 mg Orally twice a day (bid) Active 1 tablet Klonopin [facility] [address]-60 2 MG Orally Twice a day Active 1 tablet [facility] [address]-61 0.3 MG Orally twice a day (bid) Active 1 tablet [facility] [address]-25 350 MG Orally Four times a day Aug 18, 2015 Active 1 tablet as needed Social History Social History Element Qualifiers Date Reported Tobacco Use: . Are you a: current smoker Apr 29 Marital Status: . Apr 29, 2015 Do you drink alcohol? . 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
--- OUTSIDE RECORDS SUMMARY | 2019-12-06 20:18 | XMS REPORT ---
Author Author NELY Nagel Organization eClinicalWorks Address Unknown Phone Unavailable Care Team Providers Care Senior Manager Asset Protection Name Role Phone Elvi Nagel CP Unavailable Allergies No Known Allergies Problems Problem Type Condition Code Onset Dates Condition Statu s Problem Crohn disease K50.90 Active Problem Insomnia G47.00 Active Problem Cervical disc disease with myelopathy M50.00 Active Assessment Anxiety F41.9 Active Problem Anxiety [...] Start Date End Date Status Dosage Soma [facility] 86581657640 350 MG Orally three times a day (tid) Sep 27, 2018 Active 1 tablet as needed Results No Known Results Summary Purpose eClinicalWorks Submission
--- OUTSIDE RECORDS SUMMARY | 2019-12-06 20:18 | XMS REPORT ---
Author Author NELY Nagel Organization eClinicalWorks Address Unknown Phone Unavailable Care Team Providers Care Tin Pot Operator Name Role Phone Elvi Nagel CP [...] G89.29 Active Problem Vertigo R42 Active Assessment Vertigo R42 Active Assessment Anxiety F41.9 Active Assessment Cervical disc disease with myelopathy M50.00 Active Problem Anxiety F41.9 Active Assessment HTN (hypertension), benign I10 A ctive Problem IBS (irritable bowel syndrome) K58.9 Active Medications Medication Code System Code Instructions Start Date End Date Status Dosage Klonopin [facility] 19791645581 2 MG Orally Twice a day November 10, 2016 Active 1 tablet Meclizine HCl [facility] 62046636740 25 MG Orally twice a day (bid) Jan Active 1 tablet Lisinopril [facility] 98876010067 40 mg Orally twice a day (bid) Active 1 tablet Soma [facility] 11525975086 350 Orally three times a day (tid) Active 1 tablet Results No Known Results Summary Purpose eClinicalWorks Submission
--- OUTSIDE RECORDS SUMMARY | 2019-12-06 20:18 | XMS REPORT ---
Author Author NELY Nagel Organization eClinicalWorks Address Unknown Phone Unavailable Care Team Providers Care Model Builder Name Role Phone Elvi Nagel CP Unavailable [...] HTN (hypertension), benign I10 A ctive Assessment Cervical disc disease with myelopathy M50.00 Active Problem Anxiety F41.9 Active Assessment Anxiety F41.9 Active Problem IBS (irritable bowel syndrome) K58.9 Active Medications Medication Code System Code Instructions Start Date End Date Status Dosage Soma [facility] 83469439341 350 MG Orally three times a day (tid) Sep 27, 2018 Active 1 tablet as needed Meclizine HCl [facility] 20239894896 25 MG Orally twice a day (bid) Jan Active 1 tablet Lisinopril [facility] 76756645114 40 mg Orally twice a day (bid) Active 1 tablet [place] [facility] 76447804160 10-325 MG Orally four times a day (qid ) Jul 15, 2016 Active 1 tablet as needed Klonopin [place] 99443947393 2 MG Orally Twice a day November 10, 2016 Active 1 tablet Dicyclomine HCl [facility] 04906966808 20 mg Orally Four times a day May 28, 2019 Active 1 tablet Clonidine HCl [facility] 81304048220 0.3 MG Orally Twice a day as needed Active 1 tablet Vital Signs Date/Time: October 26, 2018 BMI 31.05 Index Weight 177.0 lbs Height 63.3 in Temperature 96.6 F Cardiac Monitoring Heart Rate 80 /min Blood Pressure Diastolic 105 mm Hg Blood Pressure Systolic 162 mm Hg Results No Known Results Summary Purpose eClinicalWorks Submission
--- OUTSIDE RECORDS SUMMARY | 2019-12-06 20:18 | XMS REPORT ---
Author Author NLEY Nagel Organization eClinicalWorks Address Unknown Phone Unavailable Care Team Providers Care Welding Technician Name Role Phone Elvi Nagel CP [...] Date End Date Status Dosage Dicyclomine HCl [facility] 37564710842 20 Orally Active T JAYLEN ONE TABLET BY MOUTH FOUR TIMES A DAY Soma [facility] 41079197105 350 Active TAKE ONE TAB LET BY MOUTH FOUR TIMES A DAY NEEDED Klonopin [facility] [address]-68 2 MG Orally Twice a day November 10, 2016 Active 1 tablet Results No Known Results Summary Purpose eClinicalWorks Submission
--- OUTSIDE RECORDS SUMMARY | 2019-12-06 20:18 | XMS REPORT ---
Author Author NELY Nagel Organization eClinicalWorks Address Unknown Phone Unavailable Care Team Providers Care Slag Mixer Name Role Phone Elvi Nagel CP Unavailable [...] Start Date End Date Status Dosage Klonopin [facility] [address]-16 2 MG Orally Twice a day November 10, 2016 Active 1 tablet Results No Known Results Summary Purpose eClinicalWorks Submission
--- OUTSIDE RECORDS SUMMARY | 2019-12-06 20:18 | XMS REPORT ---
Author Author NELY Nagel Organization eClinicalWorks Address Unknown Phone Unavailable Care Team Providers Care Wireless Store Manager Name Role Phone Elvi Nagel Unavailable Encounters Encounter Location Date Unknown [facility] May 24, 2015 Unknown [facility] May 24, 2015 Unknown [facility] Jun 19, 2015 Unknown [facility] October 09, 2015 Unknown [facility] Apr 29, 2015 Unknown [facility] Apr 29, 2015 Unknown [facility] May 23, 2015 Unknown [facility] November 12, 2015 Unknown [facility] October 21, 2015 Unknown [facility] November 12, 2015 Problems Problem Type Condition ICD-9 Code Onset Dates Condition Statu s Problem Anxiety F41.9 Active Problem Irritable bowel syndrome K58.9 Act maya Problem HTN (hypertension) I10 Active Problem HTN (hypertension) 401.9 Active Medications Medication Code System Code Instructions Start Date End Date Status Dosage Lisinopril [facility] [address]-41 40 mg Orally twice a day (bid) Active 1 tablet Dicyclomine HCl [facility] [address]-85 20 mg Orally Four times a da y February 10, 2016 Active 1 tablet Social History Social History [...] . 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
--- OUTSIDE RECORDS SUMMARY | 2019-12-06 20:18 | XMS REPORT ---
Author Author NELY Nagel [facility] eClinicalWorks Address Unknown Phone Unavailable Care Team Providers Care Appliance Technician Name Role Phone Elvi Nagel CP Unavailable Allergies, Adverse Reactions, Alerts Substance Reaction Event Type penicillin Info Not Available Drug Allergy sulfa Info Not Available Drug Allergy Codeine Phosphate Info Not Available Drug Allergy Cipro Info Not Available Drug Allergy Encounters Encounter Location Date Unknown [facility] May 24, 2015 Unknown [facility] May 24, 2015 Unknown [facility] Jun 19, 2015 Unknown [facility] October 09, 2015 Unknown [facility] Apr 29, 2015 3 month follow up [facility] November 19, 2015 Unknown [facility] Apr 29, 2015 Unknown [facility] May 23, 2015 Unknown [facility] November 12, 2015 Unknown [facility] October 21, 2015 Unknown [facility] November 12, 2015 Problems Problem Type Condition ICD-9 Code Onset Dates Condition Statu s Assessment Diplopia H53.2 Active Assessment Crohn disease K50.90 Active Assessment IBS (irritable bowel syndrome) K58.9 Active Assessment Osteoarthritis of right knee M17.9 Active Assessment Dental caries, unspecified K02.9 A ctive Problem IBS (irritable bowel syndrome) K58.9 Active Problem HTN (hypertension) I10 Active Problem Crohn disease K50.90 Active Assessment HTN (hypertension) I10 Active Assessment Anxiety F41.9 Active Problem Anxiety F41.9 Active Problem HTN (hypertension) 401.9 Active Medications Medication Code System Code Instructions Start Date End Date Status D[facility] [address]-85 20 mg Orally Four times a da y February 10, 2016 Active 1 tablet Klonopin [facility] [address]-52 2 MG Orally Twice a day Active 1 [facility] [address]-75 40 mg Orally twice a day (bid) Active 1 tablet Clonidine [facility] [address]-61 0.3 MG Orally twice a day (bid) Active 1 tablet Carisoprodol [facility] [address]-64 350 MG Orally Four times a day December 08, 2015 Active 1 tablet as needed Social History Social History Element Qualifiers Date Reported Tobacco Use: . Are you a: current smoker November 18 016 Use of recreational / street drugs? . Answer: No Apri 2015 Marital Status: . November 19, 2015 Do you exercise? . Answer: No November 19, 2015 Do you drink alcohol? . Status: No November 19, 2015 Travel outside [place]: . 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
--- OUTSIDE RECORDS SUMMARY | 2019-12-06 20:18 | XMS REPORT ---
Author Author NELY Nagel [facility] eClinicalWorks Address Unknown Phone Unavailable Care Team Providers Care Machine Straw Hat Presser Name Role Phone Elvi Nagel Unavailable Encounters Encounter Location Date Unknown [facility] May 24, 2015 Unknown [facility] May 24, 2015 Unknown [facility] Jun 19, 2015 Unknown [facility] October 09, 2015 Unknown [facility] Apr 29, 2015 Unknown [facility] Apr 29, 2015 Unknown [facility] May 23, 2015 Unknown [facility] November 12, 2015 Unknown [facility] October 21, 2015 Unknown [facility] November 12, 2015 Unknown [facility] Mar 31, 2016 Unknown [facility] Mar 31, 2016 Unknown [facility] Mar 27[facility] 2016 Unknown [facility] Mar 31, 2016 Unknown [facility] February 29, 2016 Refill [facility] Mar 03, 2016 3 month follow up [facility] November 19, 2015 Unknown [facility] January 10, 2016 Problems Problem Type Condition ICD-9 Code Onset Dates Condition Statu s Assessment Irritable bowel syndrome K58.9 Act maya Assessment Cervical disc disease with myelopathy M50.00 Active Problem Insomnia G47.00 Active Problem Crohn disease K50.90 Active Problem Cervical disc disease with myelopathy M50.00 Active Problem Anxiety F41.9 Active Assessment HTN (hypertension) I10 Active Problem IBS (irritable bowel syndrome) K58.9 Active Problem HTN (hypertension) I10 Active Medications Medication Code System Code Instructions Start Date End Date Status Dosage Lisinopril MEDISPAN [address]-46 40 mg Orally twice a day (bid) Active 1 tablet Dicyclomine HCl MEDISPAN [address]-21 20 mg Orally Four times a da y Jun 29, 2016 Active 1 tablet Clonidine HCl MEDISPAN [address]-18 0.3 MG Orally twice a day (bid) [...] no 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
--- OUTSIDE RECORDS SUMMARY | 2019-12-06 20:18 | XMS REPORT ---
Author Author NELY Nagel Organization eClinicalWorks Address Unknown Phone Unavailable Care Team Providers Care Research And Development Director Name Role Phone Elvi Nagel CP Unavailable Encounters Encounter Location Date Unknown [facility] May 24, 2015 Unknown [facility] May 24, 2015 Unknown [facility] Jun 19, 2015 Unknown [facility] October 09, 2015 Unknown [facility] Apr 29, 2015 Unknown [facility] Apr 29, 2015 Unknown [facility] May 23, 2015 Unknown [facility] October 21, 2015 Problems Problem Type Condition ICD-9 Code Onset Dates Condition Statu s Problem Anxiety F41.9 Active Problem Irritable bowel syndrome K58.9 Act maya Problem HTN (hypertension) I10 Active Problem HTN (hypertension) 401.9 Active Medications Medication Code System Code Instructions Start Date End Date Status Dosage Keflex MEDISPAN [address]-14 500 MG Orally Twice a day October 012015October 31, 2015 Active 1 capsule Social History Social History Element Qualifiers Date [...] no 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
--- OUTSIDE RECORDS SUMMARY | 2019-12-06 20:18 | XMS REPORT ---
Author Author NELY Nagel Organization eClinicalWorks Address Unknown Phone Unavailable Care Team Providers Care Geological Specialist Name Role Phone Elvi Nagel CP Unavailable [...] Problem Other chronic pain G89.29 Active Assessment Cervical disc disease with myelopathy M50.00 Active Assessment Anxiety F41.9 Active Problem Anxiety F41.9 Active Problem IBS (irritable bowel syndrome) K58.9 Active Medications Medication Code System Code Instructions Start Date End Date Status Dosage Klonopin [facility] 29106857812 2 MG Orally Twice a day November 10, 2016 Active 1 tablet Soma [facility] 75092279447 350 Active TAKE ONE TAB LET BY MOUTH THREE TIMES A DAY Results No Known Results Summary Purpose eClinicalWorks Submission
--- OUTSIDE RECORDS SUMMARY | 2019-12-06 20:18 | XMS REPORT ---
Author Author NELY Naegl Organization eClinicalWorks Address Unknown Phone Unavailable Care Team Providers Care Electrical Tester Battery Name Role Phone Elvi Nagel CP Unavailable [...]
--- OUTSIDE RECORDS SUMMARY | 2019-12-06 20:18 | XMS REPORT ---
Author Author NELY Nagel Organization eClinicalWorks Address Unknown Phone Unavailable Care Team Providers Care Forest Management Teacher Name Role Phone Elvi Nagel Unavailable Allergies, [...] disc disease with myelopathy M50.00 Active Assessment Closed fracture of right wrist, initial encounter S62. 101A Active Problem Anxiety F41.9 Active Problem IBS (irritable bowel syndrome) K58.9 Active Problem Ataxia R27.0 Active Problem Cervicalgia M54.2 Active Problem HTN (hypertension), benign I10 A ctive Problem GERD without esophagitis K21.9 Act maya Problem Thyroid nodule E04.1 Active Problem Other chronic pain G89.29 Active Problem Vertigo R42 Active Medications Medication Code System Code Instructions Start Date End Date Status Dosage Soma [facility] 75910774897 350 MG Orally three times a day (tid) Sep 27, 2018 Active 1 tablet as needed Dicyclomine HCl [facility] 09364873712 20 mg Orally Four times a day May 28, 2019 Active 1 tablet Klonopin [facility] 97498621645 2 MG Orally Twice a day November 10, 2016 Active 1 tablet Clonidine HCl ND 58059608315 0.3 MG Orally Twice a day as needed Active 1 tablet Lisinopril ND 59185650053 40 mg Orally twice a day (bid) Active 1 tablet Meclizine HCl ND 73145170773 25 MG Orally twice a day (bid) Jan Active 1 tablet [place] [facility] 57032999492 10-325 MG Orally four times a day (qid ) Jul 15, 2016 Active 1 tablet as needed Vital Signs Date/Time: November 02, 2018 BMI 31.23 Index Weight 178.0 lbs Height 63.3 in Temperature 97.1 F Cardiac Monitoring Heart Rate 69 /min Blood Pressure Diastolic 78 mm Hg Blood Pressure Systolic 132 mm Hg Results No Known Results Summary Purpose eClinicalWorks Submission
--- OUTSIDE RECORDS SUMMARY | 2019-12-06 20:18 | XMS REPORT ---
Author Author NELY Nagel Organization eClinicalWorks Address Unknown Phone Unavailable Care Team Providers Care Director Of Real Estate Name Role Phone Elvi Nagel CP Unavailable Allergies, Adverse Reactions, Alerts Substance Reaction Event Type Codeine Phosphate Info Not Available Drug Allergy [...] G89.29 Active Problem Vertigo R42 Active Assessment IBS (irritable bowel syndrome) K58.9 Active Assessment Cervical disc disease with myelopathy M50.00 Active Assessment Annual physical exam Z00.00 Active Assessment Anxiety F41.9 Active Problem Anxiety F41.9 Active Assessment HTN (hypertension), benign I10 A ctive Problem IBS (irritable bowel syndrome) K58.9 Active Medications Medication Code System Code Instructions Start Date End Date Status Dosage Meclizine HCl [facility] 71091474372 25 MG Orally twice a day (bid) Jan Active 1 tablet Dicyclomine HCl ND 82670639290 20 mg Orally Four times a day Active 1 tablet Clonidine HCl ND 19934733519 0.3 MG Orally Twice a day as needed Active 1 tablet Lisinopril ND 07610532618 40 mg Orally twice a day (bid) Active 1 tablet [place] [facility] 23192609011 10-325 MG Orally four times a day (qid ) Jul 15, 2016 Active 1 tablet as needed Klonopin ND 07725588130 2 MG Orally Twice a day November 10, 2016 Active 1 tablet Soma ND 03658151056 350 Active TAKE ONE TAB LET BY MOUTH THREE TIMES A DAY Vital Signs Date/Time: Sept 07, 2018 BMI 29.58 Index Weight 168.6 lbs Height 63.3 in Temperature 97.7 F Cardiac Monitoring Heart Rate 95 /min Blood Pressure Diastolic 109 mm Hg Blood Pressure Systolic 192 mm Hg Results No Known Results Summary Purpose eClinicalWorks Submission
--- OUTSIDE RECORDS SUMMARY | 2019-12-06 20:18 | XMS REPORT ---
Author Author NELY Nagel [facility] eClinicalWorks Address Unknown Phone Unavailable Care Team Providers Care Forestry Fire Aid Name Role Phone Elvi Nagel Unavailable Encounters Encounter Location Date Unknown [facility] May 24, 2015 Unknown [facility] May 24, 2015 Unknown [facility] Jun 19, 2015 Unknown [facility] October 09, 2015 Unknown [facility] Apr 29, 2015 Unknown [facility] Apr 29, 2015 Unknown [facility] May 23, 2015 Unknown [facility] November 12, 2015 Unknown [facility] October 21, 2015 Unknown [facility] November 12, 2015 Unknown [facility] February 29, 2016 3 month follow up [facility] November 19, 2015 Unknown [facility] January 10, 2016 Problems Problem Type Condition ICD-9 Code Onset Dates Condition Statu s Problem Insomnia G47.00 Active Problem Crohn disease K50.90 Active Problem Cervical disc disease with myelopathy M50.00 Active Problem Anxiety F41.9 Active Assessment Thyroid nodule E04.1 Active Problem IBS (irritable bowel syndrome) K58.9 Active Problem HTN (hypertension) I10 Active Social History Social History Element Qualifiers Date [...] no 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
--- OUTSIDE RECORDS SUMMARY | 2019-12-06 20:18 | XMS REPORT ---
Author Author NELY Nagel Organization eClinicalWorks Address Unknown Phone Unavailable Care Team Providers Care Wire Photo Operator News Name Role Phone Elvi Nagel Unavailable Allergies [...] R42 Active Assessment Vertigo R42 Active Assessment IBS (irritable bowel syndrome) K58.9 Active Assessment Colitis K52.9 Active Problem Anxiety F41.9 Active Assessment HTN (hypertension), benign I10 A ctive Problem IBS (irritable bowel syndrome) K58.9 Active Medications Medication Code System Code Instructions Start Date End Date Status Dosage Meclizine HCl [facility] 99191027750 25 MG Orally twice a day (bid) Jan Active 1 tablet [address]ril [facility] 02676072242 40 mg Orally twice a day (bid) Active [address] [facility] 25974606979 2 MG Orally Twice a day November 10, 2016 Active 1 tablet Clonidine HCl [facility] 80714456060 0.3 MG Orally Twice a day as needed Active 1 tablet Dicyclomine HCl [facility] 46615571682 20 mg Orally Four times a day Active [address] [facility] 81461142693 350 Active TAKE ONE TAB LET BY MOUTH THREE TIMES A DAY Results No Known Results Summary Purpose eClinicalWorks Submission
--- OUTSIDE RECORDS SUMMARY | 2019-12-06 20:18 | XMS REPORT ---
Author Author NELY Nagel [facility] eClinicalWorks Address Unknown Phone Unavailable Care Team Providers Care Inspector Fibrous Wallboard Name Role Phone Elvi Nagel Unavailable Encounters Encounter Location Date Unknown [facility] May 24, 2015 Unknown [facility] May 24, 2015 Unknown [facility] Jun 19, 2015 Unknown [facility] October 09, 2015 Unknown [facility] Apr 29, 2015 3 month follow up [facility] November 19, 2015 Unknown [facility] Apr 29, 2015 Unknown [facility] January 10, 2016 Unknown [facility] May 23, 2015 Unknown [facility] November 12, 2015 Unknown [facility] October 21, 2015 Unknown [facility] November 12, 2015 Problems Problem Type Condition ICD-9 Code Onset Dates Condition Statu s Problem IBS (irritable bowel syndrome) K58.9 Active Problem HTN (hypertension) I10 Active Problem Crohn disease K50.90 Active Assessment HTN (hypertension) I10 Active Problem Anxiety F41.9 Active Problem HTN (hypertension) 401.9 Active Medications Medication Code System Code Instructions Start Date End Date Status Dosage Clonidine HCl [facility] [address]-28 0.3 MG Orally twice a day (bid) [...] . 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
--- OUTSIDE RECORDS SUMMARY | 2019-12-06 20:18 | XMS REPORT ---
Author Author NELY Waller Organization eClinicalWorks Address Unknown Phone Unavailable Care Team Providers Care Freight Manager Name Role Phone Eamon Waller CP [...] G89.29 Active Assessment Vertigo R42 Active Assessment IBS (irritable bowel syndrome) K58.9 Active Assessment Anxiety F41.9 Active Assessment Cervical disc disease with myelopathy M50.00 Active Problem Anxiety F41.9 Active Assessment HTN (hypertension), benign I10 A ctive Problem IBS (irritable bowel syndrome) K58.9 Active Medications Medication Code System Code Instructions Start Date End Date Status Dosage Lisinopril [facility] 18431256120 40 mg Orally twice a day (bid) Active 1 tablet Meclizine HCl [facility] 86624592191 25 MG Orally twice a day (bid) Jan Active 1 tablet Dicyclomine HCl [facility] 09219196112 20 mg Orally Four times a day Active 1 tablet [place] [facility] 19925571602 10-325 MG Orally four times a day (qid ) Jul 15, 2016 Active 1 tablet as needed Zoloft [facility] 47467238552 50 mg Orally Once a day November 16, 2017 Inactive 1 tablet Soma [facility] 77225957468 350 Active TAKE ONE TAB LET BY MOUTH THREE TIMES A DAY Clonidine HCl [facility] 37516855424 0.3 MG Orally Twice a day as needed Active 1 tablet Klonopin [facility] 76394353637 2 MG Orally Twice a day November 10, 2016 Active 1 tablet Vital Signs Date/Time: January 07, 2018 BMI 28.60 Index Weight 163.0 lbs Height 63.3 in Temperature 97.8 F Cardiac Monitoring Heart Rate 89 /min Blood Pressure Diastolic 73 mm Hg Blood Pressure Systolic 131 mm Hg Results No Known Results Summary Purpose eClinicalWorks Submission
--- OUTSIDE RECORDS SUMMARY | 2019-12-06 20:18 | XMS REPORT ---
Author Author NELY Nagel Organization eClinicalWorks Address Unknown Phone Unavailable Care Team Providers Care Railroad Auditor Name Role Phone Elvi Nagel CP Unavailable Encounters Encounter Location Date Unknown [facility] May 24, 2015 Unknown [facility] May 24, 2015 Unknown [facility] Jun 19, 2015 Unknown [facility] October 09, 2015 Unknown [facility] Apr 29, 2015 Unknown [facility] Apr 29, 2015 Unknown [facility] May 23, 2015 Problems Problem Type Condition ICD-9 Code Onset Dates Condition Statu s Problem Anxiety F41.9 Active Problem Irritable bowel syndrome K58.9 Act maya Problem HTN (hypertension) I10 Active Problem HTN (hypertension) 401.9 Active Medications Medication Code System Code Instructions Start Date End Date Status Dos[facility] [address]-79 350 MG Orally Four times a day [...] . 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
--- OUTSIDE RECORDS SUMMARY | 2019-12-06 20:18 | XMS REPORT ---
Author Author NELY Nagel Organization eClinicalWorks Address Unknown Phone Unavailable Care Team Providers Care Kettle Operator Head Name Role Phone Elvi Nagel CP Unavailable [...] Instructions Start Date End Date Status Dosage Augmentin [facility] 28532862087 875-125 MG Orally every 12 hrs Jul 08, 2018 Jul 18, 2018 Active 1 tablet Results No Known Results Summary Purpose eClinicalWorks Submission
--- OUTSIDE RECORDS SUMMARY | 2019-12-06 20:18 | XMS REPORT ---
Author Author NELY Nagel [facility] eClinicalWorks Address Unknown Phone Unavailable Care Team Providers Care Food Scientist Name Role Phone Elvi Nagel Unavailable Encounters Encounter Location Date Unknown [facility] May 24, 2015 Unknown [facility] May 24, 2015 Unknown [facility] Jun 19, 2015 Unknown [facility] October 09, 2015 Unknown [facility] Apr 29, 2015 Unknown [facility] Apr 29, 2015 Unknown [facility] May 23, 2015 Unknown [facility] November 12, 2015 Unknown [facility] October 21, 2015 Unknown [facility] November 12, 2015 Unknown [facility] Mar 27, 2016 Unknown [facility] February 29, 2016 Refill [facility] Mar 03, 2016 3 month follow up [facility] November 19, 2015 [facility] January 10, 2016 Problems Problem Type Condition ICD-9 Code Onset Dates Condition Statu s Assessment Irritable bowel syndrome K58.9 Act maya Problem Insomnia G47.00 Active Problem Crohn disease K50.90 Active Problem Cervical disc disease with myelopathy M50.00 Active Problem Anxiety F41.9 Active Assessment HTN (hypertension) I10 Active Problem IBS (irritable bowel syndrome) K58.9 Active Problem HTN (hypertension) I10 Active Medications Medication Code System Code Instructions Start Date End Date Status Dosage Lisinopril MEDISPAN [address]-54 40 mg Orally twice a day (bid) Active 1 tablet Dicyclomine HCl MEDISPAN [address]-62 20 MG Orally Four times a day Active 1 tablet Clonidine HCl MEDISPAN [address]-92 0.3 MG Orally twice a day (bid) [...] . 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
--- OUTSIDE RECORDS SUMMARY | 2019-12-06 20:18 | XMS REPORT ---
Author Author NELY Nagel [facility] eClinicalWorks Address Unknown Phone Unavailable Care Team Providers Care Cnc Router Operator Name Role Phone Elvi Nagel Unavailable Encounters Encounter Location Date Unknown [facility] May 24, 2015 Unknown [facility] May 24, 2015 Unknown [facility] Jun 19, 2015 Unknown [facility] October 09, 2015 Unknown [facility] Apr 29, 2015 Unknown [facility] Apr 29, 2015 Unknown [facility] May 23, 2015 Unknown [facility] November 12, 2015 Unknown [facility] October 21, 2015 Unknown [facility] November 12, 2015 Unknown [facility] Mar 31, 2016 Unknown [facility] Mar 31, 2016 Unknown [facility] Mar 27, 2016 Unknown [facility] Mar 31, 2016 Unknown [facility] February 29, 2016 Refill [facility] Mar 03, 2016 3 month follow up [facility] November 19, 2015 [facility] January 10, 2016 Problems Problem Type Condition [...] . 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
--- OUTSIDE RECORDS SUMMARY | 2019-12-06 20:18 | XMS REPORT ---
Author Author NELY Nagel [facility] eClinicalWorks Address Unknown Phone Unavailable Care Team Providers Care Corn Shredder Name Role Phone Elvi Nagel Unavailable Encounters Encounter Location Date Unknown [facility] May 24, 2015 Unknown [facility] May 24, 2015 Unknown [facility] Jun 19, 2015 Unknown [facility] October 09, 2015 Unknown [facility] Apr 29, 2015 Unknown [facility] Apr 29, 2015 Unknown [facility] May 23, 2015 Unknown [facility] November 12, 2015 Unknown [facility] Sep 16, 2016 Unknown [facility] October 21, 2015 Unknown [facility] November 12, 2015 Unknown [facility] Mar 31, 2016 Unknown [facility] Mar 31, 2016 Unknown [facility] Mar 27, 2016 Unknown [facility] Mar 31, 2016 Unknown [facility] February 29, 2016 Refill [facility] Mar 03, 2016 3 month follow up [facility] November 19, 2015 Unknown [facility] January 10, 2016 ALSO NEEDS REFERRAL FOR THROID BIOPSY [facility] up Jun 15, 2016 Problems Problem Type Condition ICD-9 Code Onset Dates Condition Statu s Problem Anxiety F41.9 Active Assessment Anxiety F41.9 Active Problem Thyroid nodule E04.1 Active Problem Cervical disc disease with myelopathy M50.00 Active Problem GERD without esophagitis K21.9 Act maya Problem IBS (irritable bowel syndrome) K58.9 Active Problem HTN (hypertension) I10 Active Problem Insomnia G47.00 Active Problem Crohn disease K50.90 Active Medications Medication Code System Code Instructions Start Date End Date Status Dosage Klonopin MEDISPAN [address]-73 2 MG Orally Twice a day Active [...] Sep 15, 2016 Occupation: . home care and home health aides teacher Sep 15, 2016 Summary Purpose eClinicalWorks Submission
--- OUTSIDE RECORDS SUMMARY | 2019-12-06 20:18 | XMS REPORT ---
Author Author NELY Nagel [facility] eClinicalWorks Address Unknown Phone Unavailable Care Team Providers Care Grab Operator Name Role Phone Elvi Nagel Unavailable Encounters Encounter Location Date Unknown [facility] May 24, 2015 Unknown [facility] May 24, 2015 Unknown [facility] Jun 19, 2015 Unknown [facility] October 09, 2015 Unknown [facility] Apr 29, 2015 Unknown [facility] Apr 29, 2015 Unknown [facility] May 23, 2015 Unknown [facility] November 12, 2015 Unknown [facility] October 21, 2015 Unknown [facility] November 12, 2015 Unknown [facility] February 29, 2016 Refill [facility] Mar 03, 2016 3 month follow up [facility] November 19, 2015 Unknown [facility] January 10, 2016 Problems Problem Type Condition ICD-9 Code Onset Dates Condition Statu s Problem Insomnia G47.00 Active Problem Crohn disease K50.90 Active Problem Cervical disc disease with myelopathy M50.00 Active Problem Anxiety F41.9 Active Assessment Insomnia G47.00 Active Problem IBS (irritable bowel syndrome) K58.9 Active Problem HTN (hypertension) I10 Active Medications Medication Code System Code Instructions Start Date End Date Status Dosage Keflex MEDISPAN [address]-51 500 MG Orally Twice a day Mar 03, 2016 Mar 13, 2016 Active 1 capsule Klonopin MEDISPAN [address]-37 2 MG Orally Twice a day Active [...] . 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
--- OUTSIDE RECORDS SUMMARY | 2019-12-06 20:18 | XMS REPORT ---
Author Author NELY Nagel Organization [employer] Address Unknown Phone Unavailable Care Team Providers Care Client Strategist Name Role Phone Elvi Nagel CP Unavailable [...] Date End Date Status Dosage Soma [facility] [id number] 350 Orally three times a day (tid) Active 1 tablet Results No Known Results Summary Purpose [employer] Submission
--- OUTSIDE RECORDS SUMMARY | 2019-12-06 20:18 | XMS REPORT ---
Author Author [facility] Organization [facility] Address Unknown Phone Unavailable Care Team Providers Care Bead Machine Operator Name Role Phone Unavailable Unavailable Problems This patient has no known problems. Allergies, Adverse Reactions, Alerts This patient has no known allergies or adverse reactions. Medications This patient has no known medications. Encounters Start Date/Time End Date/Time Encounter Type Admission Type [facility] Care Department Encounter ID 2019-06-30 11:11:00 Outpatient [facility] [id number]
--- OUTSIDE RECORDS SUMMARY | 2019-12-06 20:18 | XMS REPORT ---
Author Author NELY Nagel Organization [employer] Address Unknown Phone Unavailable Care Team Providers Care Cellar Pumper Name Role Phone Elvi Nagel CP Unavailable Allergies, Adverse Reactions, Alerts Substance Reaction Event Type penicillin Info Not Available Drug Allergy sulfa Info Not Available Drug Allergy Codeine Phosphate Info Not Available Drug Allergy Cipro Info Not Available Drug Allergy Encounters Encounter Location Date Unknown [facility] May 24, 2015 Unknown [facility] May 24, 2015 Unknown [facility] Jun 19, 2015 Unknown [facility] October 09, 2015 Unknown [facility] Apr 29, 2015 Unknown [facility] Apr 29, 2015 Unknown [facility] May 23, 2015 Unknown [facility] November 12[facility] 2015 Unknown [facility] October 21, 2015 Unknown [facility] November 12, 2015 Unknown [facility] Mar 31, 2016 Unknown [facility] Mar 31, 2016 Unknown [facility] Mar 27, 2016 Unknown [facility] Mar 31, 2016 Unknown [facility] February 29, 2016 Refill [facility] Mar 03, 2016 3 month follow up [facility] November 19, 2015 Unknown [facility] January 10, 2016 ALSO NEEDS REFERRAL FOR THROID BIOPSY [facility] up Jun 15, 2016 Problems Problem Type Condition ICD-9 Code Onset Dates Condition Statu s Assessment Anxiety F41.9 Active Assessment Thyroid nodule E04.1 Active Problem Cervical disc disease with myelopathy M50.00 Active Problem Insomnia G47.00 Active Problem Thyroid nodule E04.1 Active Problem HTN (hypertension) I10 Active Problem Anxiety F41.9 Active Problem Crohn disease K50.90 Active Problem IBS (irritable bowel syndrome) K58.9 Active Medications Medication Code System Code Instructions Start Date End Date Status Dosage BusPIRone HCl [facility] [address]-70 7.5 MG Orally Twice a day Jun Active 1 tablet Soma [employer] [address]-33 350 MG Orally Four times a day Active 1 tablet as needed Clonidine HCl [facility] [address]-03 0.3 MG Orally twice a day (bid) Active 1 tablet [facility] [address]-55 2 MG Orally Twice a day Active 1 tablet Lisinopril [facility] [address]-52 40 mg Orally twice a day (bid) Active 1 tablet Dicyclomine HCl [facility] [address]-09 20 mg Orally Four times a da y Jun 29, 2016 Active 1 tablet Social History Social History Element Qualifiers Date Reported Tobacco Use: . Are you a: current smoker Jun 15 6 Use of recreational / street drugs? . Answer: No Jun 15, 2016 Marital Status: . Jun 15, 2016 Do you exercise? . Answer: No Jun 15, 2016 Do you drink alcohol? . Status: No Jun 15, 2016 Travel outside [place]: . 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 F Cardiac Monitoring Heart Rate 66 /min Blood Pressure Diastolic 83 mm Hg Blood Pressure Systolic 128 mm Hg Summary Purpose [employer] Submission
--- NOTE | 2019-12-06 22:04 | Diagnostic Imaging Report ---
EXAMINATION: X-ray chest 1 view and left RIBS 3 views INDICATION: Left rib pain COMPARISON: None FINDINGS: TUBES and LINES: None. LUNGS: Normal lung volumes. Bibasilar haziness. No consolidations. PLEURA: No pleural effusion or pneumothorax. HEART AND MEDIASTINUM: The cardiomediastinal silhouette is unremarkable. BONES AND SOFT TISSUES: None space fracture of left rib for and possibly of left rib 2. Degenerative changes in the spine. Soft tissues are unremarkable. UPPER ABDOMEN: No free air under the diaphragm. IMPRESSION: Nondisplaced fracture of left rib 4, and possibly of left rib 2. Bibasilar haziness likely due to atelectasis although pneumonia is possible. Signed by: Edward Alanis DO on 12/06/2019 10:01 PM
== END 2019-12-06 22:32 | disposition home or self-care (01) ==
LOC: ER 20:12
DX: S22.42XA Multiple fractures of ribs, left side, initial encounter for closed fracture (principal); W01.0XXA Fall on same level from slipping, tripping and stumbling without subsequent striking against object, initial encounter; Y93.01 Activity, walking, marching and hiking; Y92.008 Other place in unspecified non-institutional (private) residence as the place of occurrence of the external cause; I10 Essential (primary) hypertension; M54.9 Dorsalgia, unspecified; G89.29 Other chronic pain
CPT/HCPCS: 71101; 99283